=== PATIENT | male | born 1960 | race Caucasian/White ===

== ENCOUNTER 2019-12-13 08:35 | Outpatient (CLI) | payer OTHER, SELFPAY ==
--- NOTE | ~2019-12-13 | CT_ITS ---
EXAMINATION: CT chest w con DATE: 12/13/2019 09:36 INDICATION: Non-small cell lung cancer TECHNIQUE: Transaxial computed tomographic images of the chest were obtained after the administration of 75 cc of Omnipaque 350 intravenous contrast. The dose-length product (DLP) was 256.91 mGy-cm. Ite rative reconstruction was used. COMPARISON: 07/26/2019, 08/23/2019 FINDINGS: The previously described left upper lobe nodule has decreased in size now measuring approxi mately 1.8 x 1.0 cm, previously 2.8 x 2.5 cm. Left hilar and mediastinal lymphadenopathy has also dec reased. For instance a 3.5 x 2.7 cm prevascular gui mass previously measured 6.5 x 3.2 cm. The hear t size is normal There is mild emphysema. There is no pleural effusion or pneumothorax. A right inter nal jugular Port-A-Cath ends with its tip in the proximal right atrium. There is mild thoracic spondy losis. The liver is diffusely low in attenuation when compared with the spleen, consistent with hepat ic steatosis. IMPRESSION: 1. Interval response to therapy as evidenced by decrease in size of the left upper lobe nodule and me diastinal lymphadenopathy. Reviewed, dictated and finalized at location A. IMPRESSION: 1. Interval response to therapy as evidenced by decrease in size of the left up per lobe nodule and mediastinal lymphadenopathy.
== END 2019-12-13 08:36 | disposition home or self-care (01) ==
LOC: ANHIMG 08:39
PROVIDERS: Visit Provider Internal Medicine Hematology & Oncology
DX: C34.92 Malignant neoplasm of unspecified part of left bronchus or lung (principal)
CPT/HCPCS: 71260; Q9967

== ENCOUNTER 2020-03-05 10:07 | Outpatient (CLI) | payer OTHER, SELFPAY ==
--- NOTE | ~2020-03-05 | CT_ITS ---
EXAMINATION: CT chest w con DATE: 03/05/2020 10:48 INDICATION: Non-small cell lung cancer the left lung TECHNIQUE: Transaxial computed tomographic images of the chest were obtained after the administration of 75 cc of Omnipaque 350 intravenous contrast. The dose-length product (DLP) was 234.65 mGy-cm. Ite rative reconstruction was used. COMPARISON: 12/13/2019 FINDINGS: Bandlike and patchy opacities have developed in the left upper lobe which obscure the previ ously described left upper lobe nodule. The nodule appears to measure 1.2 cm in greatest dimension. B ronchiectasis has developed in the left upper lobe and superior segment of the left lower lobe as wel l. There is mild emphysema. The heart size is normal. There is a stable prevascular gui mass measur ing 3.5 x 2.6 cm. There is mild dependent atelectasis. No pleural effusion or pneumothorax is identif ied. The liver is diffusely low in attenuation when compared with the spleen, consistent with hepatic steatosis. A right internal jugular Port-A-Cath ends with its tip in the proximal right atrium. IMPRESSION: 1. Bronchiectasis with bandlike and patchy opacities developed in the left upper lobe, likely due to treatment change. 2. Apparent slight decrease in size of the previously described left upper lobe nodule which is obscu red by new opacities. 3. Stable prevascular gui mass. Reviewed, dictated and finalized at location A. IMPRESSION: 1. Bronchiectasis with bandlike and patchy opacities developed in the left uppe r lobe, likely due to treatment change. 2. Apparent slight decrease in size of the previously described left upper lobe nodule which is obscured by new opacities. 3. Stable prevascular gui mass.
== END 2020-03-05 10:08 | disposition home or self-care (01) ==
LOC: ANHIMG 10:11
PROVIDERS: PCP Nurse Practitioner Family; Visit Provider Internal Medicine Hematology & Oncology
DX: C34.92 Malignant neoplasm of unspecified part of left bronchus or lung (principal); J47.9 Bronchiectasis, uncomplicated; R91.1 Solitary pulmonary nodule
CPT/HCPCS: 71260; Q9967

== ENCOUNTER 2020-05-28 09:10 | Outpatient (CLI) | payer OTHER, SELFPAY ==
--- NOTE | ~2020-05-28 | CT_ITS ---
EXAMINATION: CT chest w con DATE: 05/28/2020 09:53 INDICATION: NSCLC LEFT TECHNIQUE: Computed tomography (CT) of the chest was performed with 75 mL Omnipaque-350 intravenous c ontrast. Additional 3D reconstructions utilizing coronal maximum intensity projection (MIP) were perf ormed. Automated exposure control and iterative reconstruction technique were employed. The dose-hua th product was 276.60 mGy-cm. COMPARISON: 03/05/2020 FINDINGS: Right internal jugular central venous port catheter with distal tip in the high right atrium. There a re subtle emphysema in the bilateral upper lungs. No significant interval change in a band like conso lidation with associated bronchiectasis in the left upper lobe and superior segment of the left lower lobe likely related to radiation fibrosis for treatment of a prior left upper lobe nodule. What is l ikely the treated nodule in the left upper lobe has decreased from 14 x 11 mm currently measuring 13 x 9 mm although definitive identification of the nodule is difficult given the development of fibrosi s and architectural distortion in the interval since the identification of the mass on prior PET/CT d ated 08/23/2019. Minimal subpleural atelectasis in the dependent aspect of the bilateral upper and lo wer lobes. No new pulmonary nodules or pulmonary infiltrates, pleural effusion or pneumothorax. Heart size is normal. No pericardial effusion. Thoracic aorta is normal in caliber with no dissection. No significant interval change in a 3.0 x 2.5 cm likely metastatic lymph prevascular lymph node in the a nterior mediastinum previously measuring 3.2 x 2.5 cm. Also unchanged are a few mildly prominent but still normal-sized paratracheal and bilateral hilar lymph nodes. No new or enlarging lymph nodes iden tified. Diffuse hepatic steatosis with focal sparing along the gallbladder fossa. Gallbladder, spleen and visualized portions of the pancreas, adrenal glands and upper poles of the kidneys are unremarka ble. Mild thoracic spondylosis. IMPRESSION: 1. No significant interval change in a bandlike region of likely radiation fibrosis and associated br onchiectasis in the left upper lobe and superior segment of the left lower lobe. 2. Slight decrease in size of a now 13 x 9 mm left upper lobe nodule likely representing response to treatment of reported non-small cell carcinoma. 3. No significant interval change in a likely treated metastatic 3.0 x 2.5 cm prevascular lymph node. 4. Mild emphysema. 5. Diffuse hepatic steatosis. Reviewed, dictated and finalized at location A. IMPRESSION: 1. No significant interval change in a bandlike region of likely radiation fibr osis and associated bronchiectasis in the left upper lobe and superior segment of the left lower lobe. 2. Slight decrease in size of a now 13 x 9 mm left upper lobe nodule likely rep resenting response to treatment of reported non-small cell carcinoma. 3. No significant interval change in a likely treated metastatic 3.0 x 2.5 cm p revascular lymph node. 4. Mild emphysema. 5. Diffuse hepatic steatosis.
== END 2020-05-28 09:11 | disposition home or self-care (01) ==
PROVIDERS: PCP Nurse Practitioner Family; Visit Provider Internal Medicine Hematology & Oncology
DX: C34.92 Malignant neoplasm of unspecified part of left bronchus or lung (principal); R91.1 Solitary pulmonary nodule; J43.9 Emphysema, unspecified; K76.0 Fatty (change of) liver, not elsewhere classified
CPT/HCPCS: 71260; Q9967

== ENCOUNTER 2020-08-18 07:28 | Outpatient (CLI) | payer OTHER, SELFPAY ==
--- NOTE | ~2020-08-18 | CT_ITS ---
EXAMINATION: CT chest w con DATE: 08/18/2020 08:04 INDICATION: Non-small cell lung cancer restaging TECHNIQUE: Computed tomography (CT) of the chest was performed without intravenous contrast. Automate d exposure control and iterative reconstruction technique were employed. Exam dose: 282.22 mGy-cm to rae exam DLP. COMPARISON: None FINDINGS: Right Port-A-Cath catheter tip in upper right atrium. No thoracic aortic aneurysm or dissection. There is chronic scarring, likely radiation fibrosis, in the left upper lobe and superior segment of the left lower lobe,stable since 05/28/2020. Mild emphysematous changes are noted. No interval pulmonary mass is evident. Stable approximately 2.5 centimeter prevascular lymph node. No enlarged hilar or mediastinal lymph no agnieszka are noted otherwise. No thoracic aortic aneurysm or dissection. No evidence of pulmonary embolism. No pericardial or pleural effusion or pneumothorax. Diffuse hepatic steatosis. Normal adrenal glands. 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 Reviewed, dictated and finalized at location A. 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
== END 2020-08-18 07:29 | disposition home or self-care (01) ==
PROVIDERS: PCP Nurse Practitioner Family; Visit Provider Internal Medicine Hematology & Oncology
DX: C34.92 Malignant neoplasm of unspecified part of left bronchus or lung (principal)
CPT/HCPCS: 71260; Q9967

== ENCOUNTER 2020-10-22 08:19 | Outpatient (CLI) | payer OTHER, SELFPAY ==
--- NOTE | ~2020-10-22 | NM_ITS ---
NM bone scan whole body INDICATION: Non-small cell lung cancer of the left lung TECHNIQUE: The patient was injected with 24.5 mCi Tc 99m HDP. Gamma camera images of the region of i nterest and whole body were obtained. COMPARISON: CT dated 08/18/2020 FINDINGS: There is mild focal area of radiotracer uptake in the left anterior ribs. Which is indeterm inate. There is a focal area of increased radiotracer uptake overlying right upper rib on the posteri or image, likely representing the port for central venous catheter. There is mild symmetric uptake in the shoulders, likely degenerative. Central venous catheter is identified with radiotracer. Mild upt buddy in the elbows, wrists and hands, likely degenerative. IMPRESSION: 1: Focal asymmetric uptake left upper anterior rib on the anterior view, possibly costochondral junc tion. This may be posttraumatic or less likely metastatic disease. Reviewed, dictated and finalized at location B. ER MACHINE OPERATOR IMPRESSION: 1: Focal asymmetric uptake left upper anterior rib on the anterior view, possi harper costochondral junction. This may be posttraumatic or less likely metastatic disease.
== END 2020-10-22 08:20 | disposition home or self-care (01) ==
PROVIDERS: PCP Nurse Practitioner Family; Visit Provider Internal Medicine Hematology & Oncology
DX: C34.92 Malignant neoplasm of unspecified part of left bronchus or lung (principal); M89.9 Disorder of bone, unspecified
CPT/HCPCS: 78306; A9561

== ENCOUNTER 2020-11-06 10:56 | Outpatient (CLI) | payer OTHER, SELFPAY ==
--- NOTE | ~2020-11-06 | US_ITS ---
EXAMINATION: US abdomen complete EXAM DATE: 11/06/2020 12:02 INDICATION: R10.11 - Right upper quadrant pain. History of lung cancer, treatment. TECHNIQUE: Multiple grayscale and Doppler images of the complete abdomen were obtained (by a technolo gist who performed the scan) and subsequently reviewed. There is no prior study for comparison. FINDINGS: The abdominal aorta is normal in caliber. Visualized portion IVC is patent. The pancreatic head a nd body are normal in appearance. The pancreatic tail is not visualized. There is echogenic liver parenchyma, hepatic steatosis. There are no focal liver lesions identified. There is no evidence of intrahepatic biliary duct dilation. Portal venous flow was seen in the he patopedal, normal direction and has normal Doppler waveform. Common bile duct measures 6 mm, which is normal. The gallbladder wall is normal in thickness, with ex pected amount of distention. No sonographic evidence of pericholecystic fluid. There is no cholelit hiases. Technologist performing exam reports patient did not demonstrate sonographic Young's sign. Please note that this sign is less reliable in patients who have received pain medication. Right kidney: There is normal contour and echogenicity. It measures 10.7 x 5.6 x 5.7 centimeters. There are no focal renal lesions identified. There is no hydronephrosis. Left kidney: There is normal contour and echogenicity. It measures 11.7 x 5.2 x 5.5 centimeters. T here are no focal renal lesions identified. There is no hydronephrosis. The spleen was searched for, but not identified. IMPRESSION: 1. Hepatic steatosis. 2. Unremarkable gallbladder. 3. No hydronephrosis. Reviewed, dictated and finalized at location B. CH SERVICE ASSOCIATE
[2020-11-06 11:06] LABS: Add Urine Microscopic? NO; Appearance Urine Clear (Clear); Bilirubin Urine Negative (Negative); Blood Urine Negative (Negative); Color Urine Yellow (Yellow); Glucose Urine UA Negative (Negative); Ketones Urine Negative (Negative); Leukocyte Esterase Ur Negative LEU/UL (Negative); Nitrate Urine Negative (Negative); Protein Urine Negative (Negative); Specific Grav Ur 1.025 (1.010-1.020); Urobilinogen Urine 0.2 mg/dL (0.2-1.0)
== END 2020-11-06 10:57 | disposition home or self-care (01) ==
LOC: CHSIMG 10:58
PROVIDERS: PCP Nurse Practitioner Family; Visit Provider Nurse Practitioner Family
DX: R10.11 Right upper quadrant pain (principal)
CPT/HCPCS: 76700; 81003

== ENCOUNTER 2020-11-13 08:03 | Outpatient (CLI) | payer OTHER, SELFPAY ==
--- NOTE | ~2020-11-13 | CT_ITS ---
EXAMINATION: CT diagnostic chest w con EXAM DATE: 11/13/2020 08:51 INDICATION: Non-small cell lung cancer. TECHNIQUE: Spiral CT of the chest following intravenous injection of 75 mL Omnipaque 350. Axial, cor onal and sagittal images were reviewed. Coronal maximum intensity pixel images of chest reviewed. Loreta charles dose-length product (DLP) for this examination was 285.79 mGy-cm. The exposure was tailored accor ding to patient size (auto mA exposure control), and iterative reconstruction (ASIR) was used as jad tional dose reduction technique. Comparison is made to prior examination from 08/18/2020. FINDINGS: Interval development of multiple scattered pulmonary nodules throughout the lungs, metasta tic disease measuring up to 8 mm in size. Again there is ill-defined left upper lobe, superior segmen t left lower lobe airspace disease with interlobular septal thickening, volume loss, could be radiati on fibrosis. There are no pleural or pericardial effusions. There is mild bronchiectasis. Tracheobro nchial tree is patent. Pathologically enlarged prevascular lymph node measuring 2.9 x 2.1 cm appear s unchanged. No central pulmonary emboli. There is no pneumothorax. Heart normal in size. No guilherme dence of coronary arterial calcification. There is hepatic steatosis. There is thoracic spondylosis without osteoblastic or osteolytic lesions identified. Right-sided portacatheter. IMPRESSION: 1. Interval development of multiple subcentimeter pulmonary nodules, metastatic disease. 2. Stable prevascular lymphadenopathy and left suprahilar opacities probably radiation fibrosis. 3. Hepatic steatosis. Reviewed, dictated and finalized at location A. SPECTROMETRY MANAGER IMPRESSION: 1. Interval development of multiple subcentimeter pulmonary nodules, metastati c disease. 2. Stable prevascular lymphadenopathy and left suprahilar opacities probably r adiation fibrosis. 3. Hepatic steatosis.
== END 2020-11-13 08:04 | disposition home or self-care (01) ==
LOC: ANHIMG 08:06
PROVIDERS: PCP Nurse Practitioner Family; Visit Provider Internal Medicine Hematology & Oncology
DX: C34.92 Malignant neoplasm of unspecified part of left bronchus or lung (principal); R91.8 Other nonspecific abnormal finding of lung field; R59.0 Localized enlarged lymph nodes; K76.0 Fatty (change of) liver, not elsewhere classified
CPT/HCPCS: 71260; Q9967

== ENCOUNTER 2020-11-24 10:35 | Outpatient (CLI) | payer OTHER, SELFPAY ==
--- NOTE | ~2020-11-24 | PE_ITS ---
EXAMINATION: PET skull to mid thigh DATE: 11/24/2020 12:36 INDICATION: Non-small cell cancer of the left lung. TECHNIQUE: Blood glucose level was 104 mg/dL. 10.273 mCi of 18-fluorodeoxyglucose (18-FDG) was admini stered i.v. Low dose computed tomography (CT) images were acquired from the base of the brain to the proximal thighs for attenuation correction and anatomic localization. Positron emission tomography (P ET) images were acquired in the same distribution beginning 70 minutes after injection. Images includ ing fused PET/CT images were reconstructed in axial, coronal, and sagittal planes. Automated exposure control technique was employed. The dose-length product was 1045.40mGy-cm. COMPARISON: 08/23/2019 FINDINGS: Head/neck: There is symmetric increased activity in the oral cavity, palatine and lingual tonsils, parotid gland s, submandibular glands, laryngeal muscles and ocular muscles without CT correlate, likely physiolog ic. No pathologically enlarged cervical lymphadenopathy or suspicious foci of increased FDG uptake in the visualized head or neck. Chest: There is a small focus of increased FDG uptake with maximal SUV of 5.7 in the left supraclavicular re gion in the region of the an approximately 12 x 5 mm lymph node suspicious for metastatic disease. Ap ical predominant emphysema. New horizontal band of consolidation suggesting across the left upper lob e at the level of a prior FDG avid left upper lobe mass consistent with interval treatment and second madelyn radiation fibrosis. On the posterolateral margin of the band of fibrosis/scarring is an approxima tely 2 cm focus of increased FDG uptake with maximal SUV of 7.0 suspicious for malignancy. The locati on and the left upper lobe appears more posterior than the previous noted mass and favor metastatic d isease. There are several new scattered bilateral subcentimeter pulmonary nodules, with mildly increa sed FDG uptake. This includes lesion at the posterior right apex with maximal SUV of 3.7. The largest is a 1 cm left lower lobe nodule along the diaphragm with maximal SUV of 2.8. The degree of FDG upta ke however could be underestimated in the bilateral lower lung zones due to volume averaging resultin g from respiratory motion which is evident on the CT images. Decrease in size of a now 2.9 x 2.0 cm p revascular lymph node which is without evident associated FDG uptake which previously measured 6.0 x 3.2 cm with maximal SUV of 11.4 consistent with response to treatment of mediastinal metastatic lymph adenopathy. No new or enlarging FDG avid thoracic lymphadenopathy. Mild cardiomegaly. Right internal jugular central venous port catheter with distal tip at the high right atrium. No pericardial or pleu ral effusion. Abdomen/pelvis/proximal thighs: There is a new masslike enlargement of the posterior aspect of the interpolar region of the right kid sonido with prominent peripheral FDG uptake with maximal SUV of 14.7. The margins of the region are diff icult to discern from the surrounding kidney but based on the region of increased FDG uptake with est imate the lesion at approximately 4-5 cm in diameter. There is mild hydronephrosis at the lower pole of the right kidney with increased likely excreted FDG activity in the mildly dilated calyces at the lower pole. There is a 3 mm stone at the mid right kidney and is unclear whether the hydronephrosis s econdary to the stone or the mass. Diffuse hepatic steatosis with focal sparing along the gallbladder fossa. Normal degree and heterogenous pattern of increased uptake throughout the liver without radio logic correlate or dominant FDG avid lesion. The gallbladder, pancreas, spleen and bilateral adrenal glands are normal. Moderate sigmoid predominant diverticulosis. There is persistent region of increas ed FDG uptake associated with mild wall thickening along a short segment of proximal sigmoid colon wi thout significa
[2020-11-24 11:00] LABS: Glucose Point of Care 104 (65-105)
== END 2020-11-24 10:36 | disposition home or self-care (01) ==
PROVIDERS: PCP Nurse Practitioner Family; Visit Provider Nurse Practitioner Family
DX: C34.12 Malignant neoplasm of upper lobe, left bronchus or lung (principal); Z51.81 Encounter for therapeutic drug level monitoring; Z79.899 Other long term (current) drug therapy; K76.0 Fatty (change of) liver, not elsewhere classified
CPT/HCPCS: 78815; 82948; A9552

== ENCOUNTER 2020-12-04 14:55 | Outpatient (CLI) | payer OTHER, SELFPAY ==
--- NOTE | ~2020-12-04 | CT_ITS ---
EXAMINATION: CT abdomen pelvis w con EXAM DATE: 12/04/2020 15:39 INDICATION: Right renal mass. Lung cancer. TECHNIQUE: Spiral CT of the abdomen and pelvis was performed following intravenous injection of 100 m L Omnipaque 350. Axial, coronal and sagittal images were reviewed. The dose-length product (DLP) fo r this examination was 827.37 mGy-cm. The exposure was tailored according to patient size (auto mA e xposure control), and iterative reconstruction (ASIR) was used as additional dose reduction technique . Comparison is made to prior examination from PET CT 11/24/2020. FINDINGS: There is hepatic steatosis without suspicious focal lesion identified. Spleen, adrenal glan ds, pancreas are unremarkable. Gallbladder is unremarkable. No biliary obstruction. Ill-defined heterogeneous region in the midpole posterior cortex of the right kidney measuring about 4 cm. Most likely malignancy, would consider renal cell cancer and also other histologies such as tra nsitional cell cancer given the ill-defined margins and possible superior calyceal invasion. No evide nce of renal vein involvement, but there is pathologically enlarged right-sided retrocaval lymph node which has heterogeneous enhancement and measures about 1.3 x 2.0 cm. There is also metastatic lymph node on the left side of the retroperitoneum measuring 1.4 x 1.0 cm. There is ill-defined fat strandi ng surrounding both these lymph nodes. Small right calyceal calcification. The prostate is unremarka ble. The bladder is unremarkable. There is mild scattered arteriosclerotic disease. There is focal region of proximal sigmoid colonic wall thickening measuring about 5 cm in length, onl y minimal adjacent inflammation. Appearance is suspicious for colon cancer, less likely diverticuliti s. Rather extensive sigmoid colonic diverticulosis. The appendix is normal. The stomach and small jasson wel are unremarkable. There is expected amount of colonic stool. No free intraperitoneal gas. Th e heart is normal in size. There are no pericardial or pleural effusions. Scattered randomly distri buted basilar pulmonary nodules consistent with metastatic disease measuring up to about 1 cm in size . There are no osteoblastic or osteolytic lesions identified. IMPRESSION: 1. Right renal 4 cm mass, with suspected superior calyceal invasion. Could be renal cell cancer, tra nsitional cell cancer or other histology. 2. Metastatic bilateral retroperitoneal lymphadenopathy at the level of the renal arteries and veins . 3. Sigmoid colonic wall thickening suspicious for adenocarcinoma. Can't exclude diverticulitis. 4. Numerous basilar pulmonary metastases. 5. Hepatic steatosis. Reviewed, dictated and finalized at location A. IMPRESSION: 1. Right renal 4 cm mass, with suspected superior calyceal invasion. Could be renal cell cancer, transitional cell cancer or other histology. 2. Metastatic bilateral retroperitoneal lymphadenopathy at the level of the re nal arteries and veins. 3. Sigmoid colonic wall thickening suspicious for adenocarcinoma. Can't exclud e diverticulitis. 4. Numerous basilar pulmonary metastases. 5. Hepatic steatosis.
--- NOTE | ~2020-12-04 | XR_ITS ---
XR abdomen/kub 1V DATE: 12/04/2020 15:15 INDICATION: Right renal mass TECHNIQUE: AP projection, 2 views COMPARISON: 12/04/[address] abdomen pelvis 11/06/2020 complete abdominal ultrasound FINDINGS: The psoas shadows are intact. No visceromegaly is evident. There is a prominent amount of f ecal material within the rectum and colon but no bowel obstruction. Included skeletal structures are unremarkable. IMPRESSION: Prominent amount of fecal material in the rectum and colon; no bowel obstruction Reviewed, dictated and finalized at [facility]. Reviewed, dictated and finalized at location B. IMPRESSION: Prominent amount of fecal material in the rectum and colon; no adi l obstruction
== END 2020-12-04 14:56 | disposition home or self-care (01) ==
PROVIDERS: PCP Nurse Practitioner Family; Visit Provider Nurse Practitioner Adult Health
DX: N28.89 Other specified disorders of kidney and ureter (principal); R59.9 Enlarged lymph nodes, unspecified; R91.8 Other nonspecific abnormal finding of lung field; K76.0 Fatty (change of) liver, not elsewhere classified; R10.9 Unspecified abdominal pain; Z87.442 Personal history of urinary calculi
CPT/HCPCS: 74018; 74177; Q9967

== ENCOUNTER 2020-12-06 19:45 | Observation (INO) | payer OTHER, SELFPAY ==
--- NOTE | ~2020-12-06 | CT_ITS ---
EXAMINATION: CT abdomen pelvis wo con EXAM DATE: 12/06/2020 20:48 INDICATION: Right flank pain. TECHNIQUE: Spiral CT of the abdomen and pelvis was performed without contrast. Axial, coronal and sag ittal images were reviewed. The dose-length product (DLP) for this examination was 1173.22 mGy-cm. The exposure was tailored according to patient size (auto mA exposure control), and iterative reconst ruction (ASIR) was used as additional dose reduction technique. Comparison is made to prior examinati on from 12/04/2020. FINDINGS: There is no significant interval change compared to CT 2 days earlier. There is hepatic steatosis without suspicious focal lesion identified. Spleen, adrenal glands, pancreas are unremarkab le. Gallbladder is unremarkable. No biliary obstruction. There is 2 x 4 mm nonobstructing left calyceal stone. No hydronephrosis or ureteral stones. Ill-defin ed heterogeneous region in the midpole posterior cortex of the right kidney measuring about 4 cm. Mos t likely malignancy, would consider renal cell cancer and also other histologies such as transitional cell cancer given the ill-defined margins. No evidence of renal vein involvement, but there is patho logically enlarged right-sided retrocaval lymph node measuring 1.3 x 2.0 cm. There is also metastatic lymph node on the left side of the retroperitoneum measuring 1.4 x 1.0 cm. There is ill-defined fat stranding surrounding both these lymph nodes. The prostate is unremarkable. The bladder is unremar kable. There is mild scattered arteriosclerotic disease. There is focal region of proximal sigmoid colonic wall thickening measuring about 5 cm in length, onl y minimal adjacent inflammation. Appearance is suspicious for colon cancer, less likely diverticuliti s. Rather extensive sigmoid colonic diverticulosis. The stomach and small bowel are unremarkable. T here is expected amount of colonic stool. No free intraperitoneal gas. The heart is normal in siz e. There are no pericardial or pleural effusions. Scattered randomly distributed basilar pulmonary nodules consistent with metastatic disease measuring up to about 1 cm in size. There are no osteobla stic or osteolytic lesions identified. IMPRESSION: 1. Right renal 4 cm mass, with suspected superior calyceal invasion. Could be renal cell cancer, tra nsitional cell cancer or other histology. 2. Metastatic bilateral retroperitoneal lymphadenopathy at the level of the r0enal arteries and vein s. 3. Sigmoid colonic wall thickening suspicious for adenocarcinoma. Can't exclude diverticulitis. 4. Numerous basilar pulmonary metastases. 5. Small nonobstructing right superior calyceal stone. 6. Hepatic steatosis. Reviewed, dictated and finalized at location A. IMPRESSION: 1. Right renal 4 cm mass, with suspected superior calyceal invasion. Could be renal cell cancer, transitional cell cancer or other histology. 2. Metastatic bilateral retroperitoneal lymphadenopathy at the level of the r0 enal arteries and veins. 3. Sigmoid colonic wall thickening suspicious for adenocarcinoma. Can't exclud e diverticulitis. 4. Numerous basilar pulmonary metastases. 5. Small nonobstructing right superior calyceal stone. 6. Hepatic steatosis.
[2020-12-06 20:00] VITALS: BP 140/96; PULSE 99; RESP 20; TEMP 36.6; O2SAT 96
--- NOTE | 2020-12-06 20:13 | ECG_ITS ---
Measurements Intervals [place] Rate: 68 P: 51 OR: 138 QRS: -9 QRSD: 87 T: 58 QT: 385 QTc: 410 Interpretive Statements SINUS RHYTHM VOLTAGE CRITERIA FOR LVH BASELINE ARTIFACT- I, II, III, AVF, V3-V4 BORDERLINE ECG Electronically Signed On 12-07-2020 16:36:47 CDT by Red Reis D.O.
[2020-12-06] MEDS: ONDANSETRON INJ 4 MG/2 ML VIAL IV PUSH (20:40)
[2020-12-06] MEDS: SODIUM CHLORIDE 0.9% IV 1,000 ML 999 ML IV CONT (20:40)
[2020-12-06] MEDS: MORPHINE SULFATE (*CRX) 4 MG/ML INJ IV PUSH (20:40)
[2020-12-06 20:41] LABS: Basophils Absolute Auto 0.03 K/mm3 (0.00-0.10); Basophils Percent Auto 0.4 % (0.0-1.0); Eosinophils Absolute Auto 0.11 K/mm3 (0.02-0.50); Eosinophils Percent Auto 1.5 % (1.0-6.0); Hematocrit 39.2 % (40.0-54.0); Hemoglobin 13.1 g/dL (14.0-18.0); Immature Granulocyte Absolute 0.04 K/mm3 (0.00-0.00); Immature Granulocyte Percent A 0.6 % (0.0-0.0); Lymphocytes Absolute Auto 1.41 K/mm3 (1.10-4.50); Lymphocytes Percent Auto 19.7 % (18.0-42.0); Mean Corpuscular HGB Conc 33.4 g/dL (32.0-36.0); Mean Corpuscular Volume 95.6 fL (78.0-102.0); Mean Platelet Volume 8.7 fl (8.7-11.0); Monocytes Absolute Auto 0.95 K/mm3 (0.10-0.90); Monocytes Percent Auto 13.3 % (2.0-11.0); Neutrophils Absolute Auto 4.6 K/mm3 (1.7-7.2); Neutrophils Percent Auto 64.5 % (50.0-70.0); Platelet Count Result 291 K/mm3 (150-420); Red Cell Distribution Width 12.2 % (11.6-14.4); White Blood Count 7.2 K/mm3 (4.8-10.8)
[2020-12-06 20:55] LABS: Add Urine Microscopic? NO; Appearance Urine Clear (Clear); Bilirubin Urine Negative (Negative); Blood Urine Negative (Negative); Color Urine Yellow (Yellow); Glucose Urine UA Negative (Negative); Ketones Urine Negative (Negative); Leukocyte Esterase Ur Negative LEU/UL (Negative); Nitrate Urine Negative (Negative); Protein Urine Negative (Negative); pH Urine 7.5 (5.0-8.0)
[2020-12-06 20:56] LABS: Alanine Aminotransferase 35 U/L (16-63); Albumin Level 3.9 g/dL (3.4-5.0); Alkaline Phosphatase 88 U/L (46-116); Anion Gap 10 mmol/L (8-16); Aspartate Amino Transferase 14 U/L (15-37); Bilirubin,Total 0.5 mg/dL (0.00-1.00); Blood Urea Nitrogen 12 mg/dL (7-18); Calcium 9.7 mg/dL (8.5-10.1); Carbon Dioxide 29 mmol/L (21-32); Chloride 97 mmol/L (98-108); Estimated CRCL calculation 59 ml/min; Estimated Glomerular Filt Rate > 60; Glucose 128 mg/dL (70-99); Lipase 44 U/L (73-393); Osmolality Calculated 283 mOsm/kg (285-295); Potassium 3.8 mmol/L (3.5-5.1); Sodium 136 mmol/L (136-145); Total Protein 7.5 g/dL (6.4-8.2); Troponin I 4.6 ng/L (0.00-60.4)
[2020-12-06 20:59] LABS: Lactic Acid Reflex 1.1 mmol/L (0.4-2.0)
--- NOTE | 2020-12-06 21:14 | ED.ABDPAIN ---
HPI - Abdominal Pain General Chief Complaint: Abdominal Pain Stated Complaint: Abdominal pain Source: patient and family Mode of arrival: ambulatory Limitations: no limitations History of Present Illness HPI narrative: this is a 60 year gentleman that presents with severe abdominal pain, does have abdominal pain off and on for the last month or so but has intensified over the last 24 hours. Currently there is no diarrhea or constipation he is nauseated with no episodes of vomiting has an aversion to food makes him nauseated, currently there is no fever chills no shortness of breath no chest pain does have some right flank discomfort with no dysuria no hematuria. The patient rates his pain 10/10 diffuse with some right flank discomfort as well. The patient has a history of lung cancer stage III non-small cell lung cancer has received radiation and has last chemo early in November. The patient is also followed by oncology and has a 4cm renal mass with superior calyceal invasion that is being worked up by his attendance clerk oncologist. Patient has pain medication oxycodone that he has been using p.o. with some no significant relief of his pain. MD elicited complaint: abdominal pain Pertinent past history: other ( Kidney mass/ lung cancer) Onset (ago): month(s) Pain Consistency: constant Location: diffuse Severity: severe Pain scale (0-10): 10 Quality: fullness and sharp Radiation: none Migration to: periumbilical and R flank Exacerbating factors: eating Relieving factors: nothing Associated symptoms: nausea Related Data Home Medications Medication Instructions Recorded Confirmed cyanocobalamin (vitamin B-12) 2,500 mcg PO DAILY 07/31/19 12/06/20 pyridoxine (vitamin B6) 100 mg PO DAILY 07/31/19 12/06/20 lidocaine 1 applic TOPICAL PRN PRN 09/03/19 12/06/20 alprazolam 0.25 mg PO HS PRN 04/23/20 12/06/20 oxycodone-acetaminophen 1 tablet PO Q4-6H PRN 12/06/20 12/06/20 Allergies Allergy/AdvReac Type Severity Reaction Status Date / Time amoxicillin [From Augmentin] Allergy Rash Verified 11/06/20 09:00 clavulanic acid Allergy Rash Verified 11/06/20 09:00 [From Augmentin] Review of Systems Review of Systems: All systems reviewed & are unremarkable except as noted in HPI and below PMFSH Past Medical History Medical History GERD (gastroesophageal reflux disease) Metastatic non-small cell lung cancer Neck pain Surgical History Surgical History History of vasectomy Family History Family History Mother Family history of type 2 diabetes mellitus Family history of renal failure Father Family history of coronary artery disease Family history of type 2 diabetes mellitus Social History Social History Smoking packs per day: 0.5 Smoking cigarettes per day: 10.0 Years smoked: 45 Smoking pack-years: 22.50 Smoking status: Former smoker Tobacco type: cigarettes Smoking end date: 08/06/19 Additional occupation/education comments: [employer] Gender identity (if verbalized by the patient): Male Spiritual care concerns: No Exam Const: General: no acute distress, alert and ill appearing Orientation/consciousness: patient oriented x3 HENMT: Head: normal to inspection Eyes: Conjunctivae: conjunctivae normal Pupils: Equal, round and reactive pupils present Neck: Neck: normal visual inspection, no lymphadenopathy and no meningeal signs Chest: Chest palpation & inspection: normal inspection of the chest Resp: Effort & Inspection: normal respiratory effort Auscultation: clear to auscultation bilaterally Cardio: Rate: regular rate Rhythm: regular rhythm GI: GI Palp: Yes Tenderness to palpation present (GI) Percussion: Yes normal to percussion :
[2020-12-06] MEDS: HYDROmorphone HCL INJ (*CRX) 2 MG/ML VIAL IV PUSH (21:17)
[2020-12-06 21:31] VITALS: BP 132/76; PULSE 68; RESP 20; TEMP 36.6; O2SAT 93
[2020-12-06 21:50] VITALS: BP 144/76; PULSE 68; RESP 18; TEMP 36.4; O2SAT 96; BMI 28.3
[2020-12-06 21:59] VITALS: PULSE 68; O2SAT 96
--- NOTE | 2020-12-06 22:06 | PC.NURSE ---
Here for observation and to room 204, cancer doctor out of town and pain in abdomen got worse, oxycodone at home not helping, states last med in ER did help and more comfortable now. oriented to room and call system, visitor policy, mask policy
[2020-12-06] MEDS: SODIUM CHLORIDE 0.9% IV 1,000 ML 100 ML IV CONT (22:17)
[2020-12-07] VITALS: BP 147/70; PULSE 60; RESP 20; TEMP 36.2; O2SAT 100
[2020-12-07] MEDS: HYDROmorphone HCL INJ (*CRX) 2 MG/ML VIAL IV PUSH ×4 (02:24→23:23)
[2020-12-07 06:25] LABS: Basophils Absolute Auto 0.03 K/mm3 (0.00-0.10); Basophils Percent Auto 0.5 % (0.0-1.0); Eosinophils Absolute Auto 0.15 K/mm3 (0.02-0.50); Eosinophils Percent Auto 2.3 % (1.0-6.0); Hematocrit 37.9 % (40.0-54.0); Hemoglobin 12.3 g/dL (14.0-18.0); Immature Granulocyte Absolute 0.02 K/mm3 (0.00-0.00); Immature Granulocyte Percent A 0.3 % (0.0-0.0); Lymphocytes Absolute Auto 1.61 K/mm3 (1.10-4.50); Lymphocytes Percent Auto 24.9 % (18.0-42.0); Mean Corpuscular HGB Conc 32.5 g/dL (32.0-36.0); Mean Corpuscular Hemoglobin 31.6 pg (27.0-31.0); Mean Corpuscular Volume 97.4 fL (78.0-102.0); Mean Platelet Volume 8.7 fl (8.7-11.0); Monocytes Absolute Auto 0.84 K/mm3 (0.10-0.90); Neutrophils Absolute Auto 3.8 K/mm3 (1.7-7.2); Platelet Count Result 275 K/mm3 (150-420); Red Blood Count 3.89 M/mm3 (4.70-6.10); Red Cell Distribution Width 12.5 % (11.6-14.4); White Blood Count 6.5 K/mm3 (4.8-10.8)
[2020-12-07 06:35] LABS: Alanine Aminotransferase 32 U/L (16-63); Albumin Level 3.3 g/dL (3.4-5.0); Alkaline Phosphatase 78 U/L (46-116); Anion Gap 6 mmol/L (8-16); Aspartate Amino Transferase 15 U/L (15-37); Bilirubin,Total 0.5 mg/dL (0.00-1.00); Blood Urea Nitrogen 12 mg/dL (7-18); Calcium 8.9 mg/dL (8.5-10.1); Carbon Dioxide 31 mmol/L (21-32); Chloride 102 mmol/L (98-108); Estimated CRCL calculation 58 ml/min; Estimated Glomerular Filt Rate > 60; Glucose 94 mg/dL (70-99); Osmolality Calculated 287 mOsm/kg (285-295); Potassium 3.9 mmol/L (3.5-5.1); Sodium 139 mmol/L (136-145); Total Protein 6.7 g/dL (6.4-8.2)
[2020-12-07 07:40] VITALS: BP 133/65; PULSE 58; RESP 18; TEMP 35.9; O2SAT 97
--- NOTE | 2020-12-07 08:26 | PM.IMHP ---
H&P: HPI History of Present Illness Date/Time: 12/07/20 08:26 this is a 60-year-old gentleman lung cancer in neck pain presented to our ED today with severe abdominal pain and nausea. Patient has a past medical history of GERD metastatic non-small cell lung cancer and neck pain. Patient has been has been having abdominal pain with nausea for approximately 1 month patient visited his primary care physician Brenna 11/11 for abdominal pain and nausea vomiting he also visited his oncologist on 11/17/2020 for right flank pain and nausea and vomiting and a weight loss of 8 pounds. Patient was found to have a nonobstructive kidney stone and a mass on his kidney during she was also found to have numerous pulmonary metastasis and sigmoid colonic wall thickening suspicious for adenocarcinoma. Patient will need to follow-up with his primary care physician he also had an appointment with the urologist concerning this renal mass will need to follow-up with them as well. Patient labs were unremarkable. He has been admitted for pain control and to control his nausea. Patient continues to have nausea today he also continues to have abdominal pain I will adjust his pain medication. He will need to follow-up with his primary care physician, oncologist and urologist Chief Complaint: Abdominal pain with nausea Review of Systems Review of Systems: Narrative: A 14 organ system Review of Systems was performed and pertinent positives included in the HPI, otherwise remaining ROS is negative. [facility] Past Medical History Medical History GERD (gastroesophageal reflux disease) Metastatic non-small cell lung cancer Neck pain Surgical History Surgical History History of vasectomy Family History Family History Mother Family history of type 2 diabetes mellitus Family history of renal failure Father Family history of coronary artery disease Family history of type 2 diabetes mellitus Social History Social History Smoking packs per day: 0.5 Smoking cigarettes per day: 10.0 Years smoked: 45 Smoking pack-years: 22.50 Smoking status: Former smoker Tobacco type: cigarettes Smoking end date: 08/06/19 Alcohol intake: never Substance use: never Additional occupation/education comments: [employer] Gender identity (if verbalized by the patient): Male Sexual Orientation (if Verbalized by the Patient): Straight or Heterosexual Spiritual care concerns: No Meds Home Medications and Allergies Home Medications Medication Instructions Recorded Confirmed Type cyanocobalamin (vitamin B-12) 2,500 mcg PO DAILY 07/31/19 12/06/20 History pyridoxine (vitamin B6) 100 mg PO DAILY 07/31/19 12/06/20 History albuterol sulfate 90 mcg/actuation 1 puff INHALATION Q4H PRN #8 gm 08/08/19 12/06/20 Rx aerosol inhaler lidocaine 1 applic TOPICAL PRN PRN 09/03/19 12/06/20 History alprazolam 0.25 mg PO HS PRN 04/23/20 12/06/20 History ondansetron HCl 8 mg tablet 8 mg PO Q8H PRN #20 tablet 11/06/20 12/06/20 Rx oxycodone-acetaminophen 1 tablet PO Q4-6H PRN 12/06/20 12/06/20 History Allergies Allergy/AdvReac Type Severity Reaction Status Date / Time amoxicillin [From Augmentin] Allergy Rash Verified 11/06/20 09:00 clavulanic acid Allergy Rash Verified 11/06/20 09:00 [From Augmentin] Vital Signs Vital Signs - 24 hr 12/06/20 20:00 12/06/20 21:31 12/06/20 21:50 Temperature 97.8 F 97.8 F 97.5 F L Pulse Rate 99 68 68 Respiratory Rate 20 20 18 Blood Pressure 140/96 H 132/76 144/76 H Pulse Oximetry 96 93 96 12/06/20 21:59 12/07/20 00:00 12/07/20 07:40 Temperature 97.2 F L 96.7 F L Pulse Rate 68 60 58 L Respiratory Rate 20 18 Blood Pressure 147/70 H 133/65 Pulse Oximetry 96 100 97 E
[2020-12-07] MEDS: SODIUM CHLORIDE 0.9% IV 1,000 ML 100 ML IV CONT ×2 (08:46→17:40)
[2020-12-07] MEDS: PANTOPRAZOLE SODIUM IV 40 MG VIAL IV PUSH (11:39)
[2020-12-07] MEDS: oxyCODONE HCL (*CRX) 10 MG TAB SR 12HR PO ×2 (11:39→20:20)
[2020-12-07 15:30] VITALS: BP 139/81; PULSE 63; RESP 18; TEMP 36.8; O2SAT 98
--- NOTE | 2020-12-07 15:35 | PC.NURSE ---
Dilaudid given over 3 minutes to prevent nausea and clamminess.
[2020-12-07 15:40] VITALS: BP 115/62; PULSE 60; RESP 18
[2020-12-07] MEDS: DOCUSATE SODIUM 100 MG CAPSULE PO (20:20)
--- NOTE | 2020-12-07 20:30 | PC.NURSE ---
Given ice cream. Ate 100%.
[2020-12-07 23:25] VITALS: BP 161/82; PULSE 68; RESP 20; TEMP 36.8; O2SAT 97
[2020-12-07] MEDS: ONDANSETRON INJ 4 MG/2 ML VIAL IV PUSH (23:25)
[2020-12-08] MEDS: SODIUM CHLORIDE 0.9% IV 1,000 ML 100 ML IV CONT (03:44)
[2020-12-08] MEDS: HYDROmorphone HCL INJ (*CRX) 2 MG/ML VIAL IV PUSH ×2 (03:47→08:29)
[2020-12-08 05:48] LABS: Hematocrit 38.3 % (40.0-54.0); Hemoglobin 12.5 g/dL (14.0-18.0); Mean Corpuscular HGB Conc 32.6 g/dL (32.0-36.0); Mean Corpuscular Hemoglobin 31.8 pg (27.0-31.0); Mean Corpuscular Volume 97.5 fL (78.0-102.0); Mean Platelet Volume 8.8 fl (8.7-11.0); Platelet Count Result 267 K/mm3 (150-420); Red Blood Count 3.93 M/mm3 (4.70-6.10); Red Cell Distribution Width 12.4 % (11.6-14.4); White Blood Count 6.3 K/mm3 (4.8-10.8)
[2020-12-08 06:07] LABS: Alanine Aminotransferase 31 U/L (16-63); Albumin Level 3.3 g/dL (3.4-5.0); Alkaline Phosphatase 80 U/L (46-116); Anion Gap 7 mmol/L (8-16); Aspartate Amino Transferase 11 U/L (15-37); Bilirubin,Total 0.4 mg/dL (0.00-1.00); Blood Urea Nitrogen 10 mg/dL (7-18); Calcium 8.8 mg/dL (8.5-10.1); Carbon Dioxide 29 mmol/L (21-32); Chloride 101 mmol/L (98-108); Estimated CRCL calculation 62 ml/min; Estimated Glomerular Filt Rate > 60; Glucose 110 mg/dL (70-99); Osmolality Calculated 284 mOsm/kg (285-295); Potassium 3.9 mmol/L (3.5-5.1); Sodium 137 mmol/L (136-145); Total Protein 6.7 g/dL (6.4-8.2)
[2020-12-08] MEDS: PROCHLORPERAZINE EDISYLATE 10 MG/2 ML VIAL IV PUSH (07:29)
[2020-12-08 07:43] VITALS: BP 135/85; PULSE 71; RESP 20; TEMP 36.7; O2SAT 100
[2020-12-08] MEDS: PANTOPRAZOLE SODIUM IV 40 MG VIAL IV PUSH (08:29)
[2020-12-08] MEDS: DOCUSATE SODIUM 100 MG CAPSULE PO (08:30)
[2020-12-08] MEDS: oxyCODONE HCL (*CRX) 10 MG TAB SR 12HR PO (08:30)
--- NOTE | 2020-12-08 10:45 | PC.NURSE ---
Patient discharged to home. Verbalized understanding discharge orders. Transported via wheelchair to personal vehicle. escorted.
--- NOTE | 2020-12-17 13:13 | PC.NURSE ---
Unable to contact for discharge call back.
--- NOTE | 2021-01-15 09:30 | PM.DS ---
DS: Admitting Diagnosis Admitting Diagnosis Admitting Diagnosis: Metastatic disease, nausea and vomiting, pain control DS: Discharge Diagnosis Discharge Diagnosis (1) Metastatic cancer: Code(s): C79.9 - Secondary malignant neoplasm of unspecified site Status: Acute Assessment and Plan: Patient diagnosed with stage III non-small cell lymphadenopathy and left hilar lymphadenopathy Lymph node biopsy completed August 02, 2019 Upper lobe nodule 2.8 cm with 6.5 x 3 x 2 cm prevascular nodule mass. Mildly enlarged mediastinal Radiation completed October 25, 2019, will be chemo with carboplatin and taxol completed October 18, 2019 Completed every 3 weeks chemo with carboplatin and on November 22, 2019 cycle 2 of 2 Maintenance durvaluma completed November 12, [address] Lozada Imaging indicates right renal mass 4 cm could possibly be renal cell cancer, sigmoid colonic wall thickening suspicious of adenocarcinoma, numerous pulmonary metastases, small nonobstructing right superior stone, metastatic bilateral retroperitoneal lymphadenopathy at the level of the renal arteries and vein (2) Abdominal pain: Code(s): R10.9 - Unspecified abdominal pain Status: Acute Assessment and Plan: Possibly secondary to kidney stone versus metastatic disease contniue zofran and Compazine continue pain medication Started oxycodone 10 mg every 12 hours (3) Nausea & vomiting: Qualifiers: Vomiting Intractability: non-intractable Vomiting type: unspecified Qualified Code(s): R11.2 - Nausea with vomiting, unspecified Code(s): R11.2 - Nausea with vomiting, unspecified Status: Acute Assessment and Plan: Possibly secondary to metastatic disease Continue Zofran and Compazine (4) Peripheral neuropathy: Qualifiers: 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 Qualified Code(s): G62.2 - Polyneuropathy due to other toxic agents Code(s): G62.9 - Polyneuropathy, unspecified Status: Acute Assessment and Plan: Chemo induced Continue home meds (5) Gastroesophageal reflux disease: Code(s): K21.9 - Gastro-esophageal reflux disease without esophagitis Status: Acute Assessment and Plan: Continue home meds (6) Shoulder pain, left: Qualifiers: Chronicity: unspecified Qualified Code(s): M25.512 - Pain in left shoulder Code(s): M25.512 - Pain in left shoulder Status: Acute Assessment and Plan: Continue pain medication (7) GERD (gastroesophageal reflux disease): Qualifiers: Esophagitis presence: without esophagitis Qualified Code(s): K21.9 - Gastro-esophageal reflux disease without esophagitis Code(s): K21.9 - Gastro-esophageal reflux disease without esophagitis Status: Acute Assessment and Plan: Continue home meds (8) Kidney stone: Code(s): N20.0 - Calculus of kidney Status: Acute Assessment and Plan: Imaging indicate nonobstructing stone and kidney mass patient had an appointment with urology last Tuesday Patient will follow up with urology on discharge DS: Summary Hospital Course Reason for hospitalization: Pain control and nausea and vomiting Hospital Course: Reason for hospitalization: Pain control and nausea and vomiting Hospital Course: This is a 60-year-old gentleman who presented to our ED with abdominal pain and nausea. patient has a past medical history of GERD metastatic non-small cell lung cancer and neck pain. Patient has been has been having abdominal pain with nausea for approximately 1 month patient visited his primary care physician Brenna 11/11 for abdominal pain and nausea vomiting he also visited his oncologist on 11/17/2020 for right flank pain and nausea and vomiting and a weight loss of 8 pounds. Patient was found to have a nonobstructive kidney stone and a mass on his kidney during she was also found to have numerous pulmonar
== END 2020-12-08 10:30 | disposition home or self-care (01) ==
LOC: CHSED 21:21 → CHS2ND 21:35
PROVIDERS: Nurse Practitioner; Admitting Provider Emergency Medicine; Emergency Provider Emergency Medicine; PCP Nurse Practitioner Family; Visit Provider Emergency Medicine
DX: R10.84 Generalized abdominal pain (principal); C77.2 Secondary and unspecified malignant neoplasm of intra-abdominal lymph nodes; C34.90 Malignant neoplasm of unspecified part of unspecified bronchus or lung; K21.9 Gastro-esophageal reflux disease without esophagitis; R93.5 Abnormal findings on diagnostic imaging of other abdominal regions, including retroperitoneum; N28.89 Other specified disorders of kidney and ureter; N20.0 Calculus of kidney; G62.0 Drug-induced polyneuropathy; T45.1X5A Adverse effect of antineoplastic and immunosuppressive drugs, initial encounter; Z87.891 Personal history of nicotine dependence
CPT/HCPCS: 36415; 74176; 80053; 81003; 83605; 83690; 84484; 85025; 85027; 93005; 96361; 96374; 96375; 96376; 99285; A9270; C9113; G0378; J0780; J1170; J2270; J2405; J7030

== ENCOUNTER 2020-12-09 12:54 | Outpatient (CLI) | payer OTHER, SELFPAY ==
--- NOTE | 2020-12-08 11:08 | PM.DS ---
DS: Admitting Diagnosis Admitting Diagnosis Admitting Diagnosis: Pain control and nausea and vomiting DS: Discharge Diagnosis Discharge Diagnosis (1) Metastatic disease: Qualifiers: Area of secondary neoplastic involvement: unspecified site Qualified Code(s): C79.9 - Secondary malignant neoplasm of unspecified site Code(s): C79.9 - Secondary malignant neoplasm of unspecified site Status: Acute Assessment and Plan: Patient diagnosed with stage III non-small cell lymphadenopathy and left hilar lymphadenopathy Lymph node biopsy completed August 02, 2019 Upper lobe nodule 2.8 cm with 6.5 x 3 x 2 cm prevascular nodule mass. Mildly enlarged mediastinal Radiation completed October 25, 2019, will be chemo with carboplatin and taxol completed October 18, 2019 Completed every 3 weeks chemo with carboplatin and on November 22, 2019 cycle 2 of 2 Maintenance durvaluma completed November 12, [address] Lozada Imaging indicates right renal mass 4 cm could possibly be renal cell cancer, sigmoid colonic wall thickening suspicious of adenocarcinoma, numerous pulmonary metastases, small nonobstructing right superior stone, metastatic bilateral retroperitoneal lymphadenopathy at the level of the renal arteries and vein (2) Abdominal pain: Qualifiers: Abdominal location: generalized Qualified Code(s): R10.84 - Generalized abdominal pain Code(s): R10.9 - Unspecified abdominal pain Status: Acute Assessment and Plan: Possibly secondary to kidney stone versus metastatic disease contniue zofran and Compazine continue pain medication Started oxycodone 10 mg every 12 hours (3) Nausea & vomiting: Qualifiers: Vomiting Intractability: non-intractable Vomiting type: unspecified Qualified Code(s): R11.2 - Nausea with vomiting, unspecified Code(s): R11.2 - Nausea with vomiting, unspecified Status: Acute Assessment and Plan: Possibly secondary to metastatic disease Continue Zofran and Compazine (4) Shoulder pain, left: Qualifiers: Chronicity: unspecified Qualified Code(s): M25.512 - Pain in left shoulder Code(s): M25.512 - Pain in left shoulder Status: Acute Assessment and Plan: Continue pain medication (5) Peripheral neuropathy: Qualifiers: 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 Qualified Code(s): G62.2 - Polyneuropathy due to other toxic agents Code(s): G62.9 - Polyneuropathy, unspecified Status: Acute Assessment and Plan: Chemotherapy induced (6) Renal mass, right: Code(s): N28.89 - Other specified disorders of kidney and ureter Status: Acute Assessment and Plan: Patient will follow up with urology in oncologist (7) GERD (gastroesophageal reflux disease): Qualifiers: Esophagitis presence: without esophagitis Qualified Code(s): K21.9 - Gastro-esophageal reflux disease without esophagitis Code(s): K21.9 - Gastro-esophageal reflux disease without esophagitis Status: Acute Assessment and Plan: Continue Protonix (8) Kidney stone: Code(s): N20.0 - Calculus of kidney Status: Acute Assessment and Plan: Imaging indicate nonobstructing stone and kidney mass patient had an appointment with urology last Tuesday Patient will follow up with urology on discharge DS: Summary Hospital Course Reason for hospitalization: Pain control and nausea and vomiting Hospital Course: This is a 60-year-old gentleman who presented to our ED with abdominal pain and nausea. patient has a past medical history of GERD metastatic non-small cell lung cancer and neck pain. Patient has been has been having abdominal pain with nausea for approximately 1 month patient visited his primary care physician Brenna 11/11 for abdominal pain and nausea vomiting he also visited his oncologist on 11/17/2020 for right flank pain and nause
--- NOTE | ~2020-12-09 | US_ITS ---
EXAMINATION: US biopsy lymph node DATE: 12/09/2020 14:16 INDICATION: Non-small cell left lung cancer with FDG avid left supraclavicular nodule. TECHNIQUE: The procedure including the risks and benefits was discussed with the patient. Risks discu ssed included bleeding and infection. The patient understood the risks and agreed to proceed. The sk in overlying the left supraclavicular region was prepped and draped in usual sterile fashion. Anest hetic was administered with 1% lidocaine subcutaneously. An 18 gauge core biopsy needle was advanced under continuous ultrasound observation to the lesion of interest. 4 core biopsy specimens were obt ained. The needle was removed and the entry site was cleaned and dressed. Post procedure ultrasound demonstrated no hemorrhage. FINDINGS: Ultrasound images demonstrate approximately 1.3 x 1.3 x 1.1 cm hypoechoic nodule near the j unction of the left subclavian artery and vein and the left jugular vein and carotid artery which cor responds in size and location to the FDG avid lesion on prior PET study. Subsequent images demonstrat e biopsy needle advanced into the lesion of concern. IMPRESSION: 1. Successful Ultrasound-guided biopsy of the 1.3 cm left supraclavicular nodule of concern. Reviewed, dictated and finalized at location A. IMPRESSION: 1. Successful Ultrasound-guided biopsy of the 1.3 cm left supraclavicular nodul e of concern.
== END 2020-12-09 12:55 | disposition home or self-care (01) ==
PROVIDERS: PCP Nurse Practitioner Family; Visit Provider Internal Medicine Hematology & Oncology
DX: C34.92 Malignant neoplasm of unspecified part of left bronchus or lung (principal)
CPT/HCPCS: 38505; 76942; 88305; 88342

== ENCOUNTER 2020-12-23 11:19 | Outpatient (CLI) | payer OTHER, SELFPAY ==
--- NOTE | ~2020-12-23 | XR_ITS ---
EXAMINATION: XR chest 2V DATE: 12/23/2020 11:47 INDICATION: Non-small cell cancer of left lung. Preop. TECHNIQUE: Frontal and lateral views of the chest were obtained. COMPARISON: Chest single view 08/15/2019, PET/CT 11/24/2020, CT abdomen and pelvis 12/06/2020 FINDINGS: There are airspace opacities in left upper upper lobe and superior segment left lower lobe with volume loss, consistent with radiation fibrosis. There are scattered nodules in the lungs. There are airspace opacities at left lung base. No pleural effusion or pneumothorax. The heart size is nor mal. There is a right internal jugular port with tip in right atrium. IMPRESSION: 1. Airspace opacities at left lung base, consistent with atelectasis versus pneumonia. 2. 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 3. Scattered pulmonary nodules, consistent with metastatic disease. Reviewed, dictated and finalized at location A. IMPRESSION: 1. Airspace opacities at left lung base, consistent with atelectasis versus pne umonia. 2. 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 3. Scattered pulmonary nodules, consistent with metastatic disease.
[2020-12-23 11:34] LABS: Basophils Absolute Auto 0.02 K/mm3 (0.00-0.10); Basophils Percent Auto 0.3 % (0.0-1.0); Eosinophils Absolute Auto 0.13 K/mm3 (0.02-0.50); Eosinophils Percent Auto 1.9 % (1.0-6.0); Hematocrit 40.2 % (40.0-54.0); Hemoglobin 13.2 g/dL (14.0-18.0); Immature Granulocyte Absolute 0.04 K/mm3 (0.00-0.00); Immature Granulocyte Percent A 0.6 % (0.0-0.0); Lymphocytes Absolute Auto 1.41 K/mm3 (1.10-4.50); Lymphocytes Percent Auto 20.1 % (18.0-42.0); Mean Corpuscular HGB Conc 32.8 g/dL (32.0-36.0); Mean Corpuscular Hemoglobin 31.7 pg (27.0-31.0); Mean Corpuscular Volume 96.6 fL (78.0-102.0); Mean Platelet Volume 8.4 fl (8.7-11.0); Monocytes Absolute Auto 1.05 K/mm3 (0.10-0.90); Neutrophils Absolute Auto 4.4 K/mm3 (1.7-7.2); Neutrophils Percent Auto 62.1 % (50.0-70.0); Platelet Count Result 346 K/mm3 (150-420); Red Blood Count 4.16 M/mm3 (4.70-6.10); Red Cell Distribution Width 12.5 % (11.6-14.4)
--- NOTE | 2020-12-23 11:34 | ECG_ITS ---
Measurements Intervals [place] Rate: 85 P: 66 SD: 127 QRS: 8 QRSD: 92 T: 83 QT: 348 QTc: 415 Interpretive Statements SINUS RHYTHM INFERIOR INFARCT, AGE INDETERMINATE NONSPECIFIC ST & T-WAVE ABNORMALITY- ANT/HIGH LATERAL LEADS BASELINE ARTIFACT- I, II, V3-V6 ABNORMAL ECG Electronically Signed On 12-23-2020 13:35:12 CDT by Red Reis D.O.
[2020-12-23 11:36] LABS: Appearance Urine Clear (Clear); Bilirubin Urine 1+ (Negative); Color Urine Yellow (Yellow); Glucose Urine UA Negative (Negative); Ketones Urine Negative (Negative); Leukocyte Esterase Ur Negative LEU/UL (Negative); Nitrate Urine Negative (Negative); Protein Urine Trace (Negative); Specific Grav Ur >= 1.030 (1.010-1.020); pH Urine 5.5 (5.0-8.0)
[2020-12-23 11:40] LABS: Add Urine Microscopic? YES; Bacteria Urine Trace /hpf; Blood Urine Trace-Intact (Negative); Mucus Urine Few /lpf; WBC Urine 0-3 /hpf (0-3)
[2020-12-23 12:15] LABS: Alanine Aminotransferase 22 U/L (16-63); Alkaline Phosphatase 93 U/L (46-116); Anion Gap 7 mmol/L (8-16); Aspartate Amino Transferase 10 U/L (15-37); Bilirubin,Total 0.4 mg/dL (0.00-1.00); Blood Urea Nitrogen 12 mg/dL (7-18); Calcium 9.8 mg/dL (8.5-10.1); Carbon Dioxide 31 mmol/L (21-32); Chloride 99 mmol/L (98-108); Estimated Glomerular Filt Rate > 60; Glucose 83 mg/dL (70-99); Osmolality Calculated 282 mOsm/kg (285-295); Potassium 4.2 mmol/L (3.5-5.1); Sodium 137 mmol/L (136-145); Total Protein 7.1 g/dL (6.4-8.2)
== END 2020-12-23 11:20 | disposition home or self-care (01) ==
LOC: CHSLAB 11:23
PROVIDERS: PCP Nurse Practitioner Family; Visit Provider Nurse Practitioner Family
DX: Z01.818 Encounter for other preprocedural examination (principal); Z87.898 Personal history of other specified conditions
CPT/HCPCS: 36415; 71046; 80053; 81001; 85025; 93005

== ENCOUNTER 2020-12-31 11:56 | Observation (INO) | payer OTHER, SELFPAY ==
--- NOTE | ~2020-12-31 | XR_ITS ---
XR abdomen/kub 1V 12/31/2020 21:24 Indication: Abdominal pain with constipation Procedure: KUB Comparison: Comparison to multiple prior studies sequentially, with oldest reviewed study dated 05/27. Findings: There is a right internal ureteral stent in expected position. There is moderate gas throug hout the small bowel and colon. Moderate colonic fecal loading. Bowel content limits evaluation for r enal stones. No acute osseous abnormality. Impression: 1: Moderately distended small bowel and colon, likely adynamic ileus. Moderate colonic fecal loading. Reviewed, dictated and finalized at location A. Impression: 1: Moderately distended small bowel and colon, likely adynamic ileus. Moderate colonic fecal loading.
--- NOTE | ~2020-12-31 | CT_ITS ---
EXAMINATION: CT biopsy renal DATE: 01/01/2021 14:26 INDICATION: Right renal mass in the setting of known metastatic small cell lung cancer. TECHNIQUE: The procedure including the risks and benefits was discussed with the patient. Risks discu ssed included bleeding and infection. The patient understood the risks and agreed to proceed. The sk in overlying the right kidney was prepped and draped in usual sterile fashion. Anesthetic was admini stered with 1% lidocaine subcutaneously. A 16 gauge outer needle was advanced under CT guidance to t he lesion of interest. An 18 gauge core biopsy needle was then advanced into the lesion. 5 core biops y specimens were obtained. The outer needle was removed and the entry site was cleaned and dressed. There were no immediate complications. The dose-length product was 257.02 mGy-cm. FINDINGS: CT images demonstrate the outer needle tip in the right kidney at the margin of a previous noted renal mass. An internal ureteral stent is partially visualized in the right renal hilum. IMPRESSION: 1. Successful CT-guided biopsy of indeterminate right renal mass which could represent either metasta tic disease or a primary renal cell carcinoma. Reviewed, dictated and finalized at location A. IMPRESSION: 1. Successful CT-guided biopsy of indeterminate right renal mass which could re present either metastatic disease or a primary renal cell carcinoma.
--- NOTE | ~2020-12-31 | XR_ITS ---
EXAMINATION: XR chest 2V DATE: 12/31/2020 13:10 INDICATION: Weakness. TECHNIQUE: Frontal and lateral views of the chest were obtained. COMPARISON: Chest 2 views 12/23/2020 FINDINGS: There is chronic volume loss of left hemithorax. There are airspace opacities in left upper lobe and superior segment left lower lobe, consistent with radiation fibrosis. There is mild scarrin g at right lung apex. There are airspace opacities at left lung base. There are scattered nodules in the lungs. No pleural effusion or pneumothorax. The heart size is normal. There is a right internal j ugular port with tip in right atrium. IMPRESSION: 1. Stable airspace opacities at left lung base, consistent with atelectasis/scarring versus pneumonia . 2. 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 3. Scattered pulmonary nodules, consistent with metastatic disease. Reviewed, dictated and finalized at location B. IMPRESSION: 1. Stable airspace opacities at left lung base, consistent with atelectasis/sca rring versus pneumonia. 2. 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 3. Scattered pulmonary nodules, consistent with metastatic disease.
[2020-12-31 12:11] VITALS: BP 133/76; PULSE 101; RESP 14; TEMP 36.8; O2SAT 99
--- NOTE | 2020-12-31 12:40 | PC.NURSE ---
Arrives via EC accompanied by , sent to ED from oncology appt today d/t worsening nausea, weakness, poor PO intake, recent 20lb weight loss. Hx lung CA with mets, has been receiving treatment x1 year and stopped in November. Was told recent mass in kidney and had ureteral stent placed to relieve the pressure , reports minimal relief but sts he is able to freely urinate and denies urinary s/s. Afebrile. Also reports worsening pain and oxycodone not helping
[2020-12-31 13:02] LABS: Basophils Percent Auto 0.3 % (0.2-1.2); Eosinophils Absolute Auto 0.1 K/mm3 (0-0.3); Hematocrit 36.8 % (42.0-52.0); Hemoglobin 12.1 g/dL (14.0-18.0); Immature Granulocyte Absolute 0.01 K/mm3 (0.00-0.031); Immature Granulocyte Percent A 0.1 % (0-0.5); Lymphocytes Absolute Auto 1.24 K/mm3 (0.9-3.2); Lymphocytes Percent Auto 17.9 % (18.3-44.2); Mean Corpuscular HGB Conc 32.9 g/dl (32-36); Mean Corpuscular Hemoglobin 31.4 pg (26-34); Mean Corpuscular Volume 95.6 fl (80-100); Mean Platelet Volume 8.5 fl (7.4-10.4); Monocytes Absolute Auto 0.8 K/mm3 (0.1-0.6); Monocytes Percent Auto 11.7 % (2.6-8.5); Neutrophils Absolute Auto 4.8 K/mm3 (1.3-6.7); Platelet Count Result 296 k/mm3 (150-375); Red Blood Count 3.85 M/mm3 (4.6-6.20); Red Cell Distribution Width 12.4 % (11.5-14.5); White Blood Count 6.9 K/mm3 (4.5-10.0)
[2020-12-31 13:12] LABS: Alanine Aminotransferase 14 U/L (4-50); Albumin Level 4.1 g/dL (3.5-5.1); Alkaline Phosphatase 86 U/L (38-126); Anion Gap 5 mmol/L (8-16); Aspartate Amino Transferase 21 U/L (17-59); Bilirubin,Total 0.2 mg/dL (0.2-1.3); Blood Urea Nitrogen 16 mg/dL (9-20); Calcium 9.2 mg/dL (8.4-10.2); Carbon Dioxide 31 mmol/L (22-30); Chloride 98 mmol/L (98-107); Estimated CRCL calculation 77 ml/min; Estimated Glomerular Filt Rate > 60; Glucose 118 mg/dL (75-110); Lipase 38 U/L (23-300); Potassium 3.9 mmol/L (3.4-5.0); Sodium 134 mmol/L (137-145)
[2020-12-31 13:15] LABS: INR 0.9; Prothrombin Time 13.2 Seconds (11.1-14.7)
[2020-12-31 13:16] LABS: Partial Thromboplastin Time 30.5 SECONDS (22.3-36.8)
[2020-12-31] MEDS: LACTATED RINGERS 1,000 ML 999 ML IV CONT (13:26)
[2020-12-31 13:35] LABS: Add Urine Microscopic? YES; Appearance Urine Cloudy (Clear); Bilirubin Urine Negative (Negative); Blood Urine 3+ (Negative); Color Urine Yellow (Yellow); Glucose Urine UA Negative (Negative); Ketones Urine 1+ mg/dL (Negative); Leukocyte Esterase Ur 3+ LEU/UL (Negative); Mucus Urine Heavy /lpf; Nitrate Urine Negative (Negative); Protein Urine 2+ mg/dL (Negative); RBC Urine >75 /hpf (0-2); Specific Grav Ur 1.028 (1.001-1.035); WBC Urine >75 /hpf
--- NOTE | 2020-12-31 14:05 | PC.NURSE ---
Dr Loyd at bedside to update pt and on POC
[2020-12-31] MEDS: HYDROmorphone HCL INJ (*CRX) 1 MG/ML SYR IV PUSH ×3 (15:04→22:26)
[2020-12-31 15:05] VITALS: BP 136/79; PULSE 76; RESP 17; O2SAT 99
--- NOTE | 2020-12-31 15:11 | ED.GENADULT ---
HPI - General Adult General Chief complaint: Weakness Stated complaint: kidney cancer/decreased po Time Seen by Provider: 12/31/20 12:45 Source: patient and family Mode of arrival: ambulatory Limitations: no limitations History of Present Illness HPI narrative: 60-year-old male Effectively today presents with complaint of poor response to cancer treatment He has been getting treatment for metastatic non-small cell lung cancer He has a new mass on his right kidney and recently had a stent placed for obstructive symptoms there Apart from that he has ongoing anorexia weight loss constipation from his pain medications inadequate pain control from his pain medications difficulties with scheduling a renal biopsy and a disagreement about whether he should possibly be having a nephrectomy or not Related Data Home Medications Medication Instructions Recorded Confirmed cyanocobalamin (vitamin B-12) 2,500 mcg PO DAILY 07/31/19 12/06/20 pyridoxine (vitamin B6) 100 mg PO DAILY 07/31/19 12/06/20 lidocaine 1 applic TOPICAL PRN PRN 09/03/19 12/06/20 alprazolam 0.25 mg PO HS PRN 04/23/20 12/06/20 Allergies Allergy/AdvReac Type Severity Reaction Status Date / Time amoxicillin [From Augmentin] Allergy Rash Verified 12/23/20 11:02 clavulanic acid Allergy Rash Verified 12/23/20 11:02 [From Augmentin] Review of Systems Review of Systems: All systems reviewed & are unremarkable except as noted in HPI and below Constitutional: Constitutional: Denies chills, Reports fatigue, Denies fever(s), Denies headache(s) and Reports weakness Comments: Weight loss Eyes: Eyes: Reports no additional eye complaints and Denies change in vision ENT: Denies headache(s) and Denies sore throat Cardiovascular: Cardiovascular: Reports chest pain and Denies dyspnea Respiratory: Respiratory: Reports cough and Reports dyspnea Gastrointestinal: Gastrointestinal: Reports abdominal pain, Reports constipation, Denies diarrhea, Reports nausea and Denies vomiting Genitourinary: Genitourinary: Denies hematuria, Denies dysuria and Denies urinary frequency Musculoskeletal: Musculoskeletal: Reports myalgias, Denies deformity, Reports arthralgias, Denies joint swelling and Denies numbness Integumentary/Breasts: Skin/Breast: Denies rash and Denies wounds Neurologic: Denies headache(s), Denies focal weakness and Denies numbness Psychiatric: Psychiatric: Reports no additional psychiatric complaints Endocrine: Endocrine: Reports no additional endocrine complaints Hematologic/Lymphatic: Hematologic/Lymphatic: Reports no additional hematologic/lymphatic complaints Allergic/Immunologic: Allergic/Immunologic: Reports no additional allergic/immunologic complaints [facility] Past Medical History Medical History GERD (gastroesophageal reflux disease) Metastatic non-small cell lung cancer Neck pain Surgical History Surgical History History of vasectomy Family History Family History Mother Family history of type 2 diabetes mellitus Family history of renal failure Father Family history of coronary artery disease Family history of type 2 diabetes mellitus Social History Social History Smoking packs per day: 0.5 Smoking cigarettes per day: 10.0 Years smoked: 45 Smoking pack-years: 22.50 Smoking status: Never smoker Tobacco type: cigarettes Smoking end date: 08/06/19 Alcohol intake: never Substance use: never Additional occupation/education comments: [employer] Gender identity (if verbalized by the patient): Male Spiritual care concerns: No Exam Const: General: cooperative, no acute distress, alert and ill appearing Orientation/consciousness: patient oriented x3
[2020-12-31 16:07] VITALS: BP 143/75; PULSE 87; RESP 19; O2SAT 100
[2020-12-31] MEDS: polyethylene glycoL 3350 17 GM POWD.PACK PO (16:07)
--- NOTE | 2020-12-31 16:45 | PC.NURSE ---
Hospitalist at bedside. Non-labored respirations, call light within reach, pt and updated on POC
--- NOTE | 2020-12-31 17:15 | PM.IMHP ---
H&P: HPI History of Present Illness Date/Time: 12/31/20 17:15 Chief Complaint: Weakness. Narrative: This is a a 60-year-old male with history of cancer who presented to the emergency department earlier today from Dr. Lozada's office with complaints of weakness. He was diagnosed with non-small cell lung cancer in July 2019 and is status post chemoradiation. A recent PET scan showed evidence of new bilateral pulmonary nodules consistent with metastatic disease as well as a new masslike region in the posterior interpolar region of the right kidney representing either metastatic disease or primary renal cell carcinoma. Left supraclavicular lymph node biopsy done on 12/09/2020 demonstrated metastatic squamous cell carcinoma, likely from a primary lung origin. He has yet to have a biopsy of the kidney mass but did have a ureteral stent placed within the last week somewhere and [place]. In any event he had an appoint with Dr. Lozada today to discuss his tests and plans for upcoming biopsy. He was then directed to the emergency department after the patient reported unrelenting diffuse, sharp abdominal pain as well as poor appetite and ongoing nausea. With further questioning this abdominal pain has been plaguing him for quite some time and it is not new or worse. It sounds like he refused to go home ?until something gets figured out? regarding his upcoming kidney biopsy and what is to come with regards to treatment. He is also quite frustrated given ongoing abdominal pain and conflicting opinions from different doctors, one who thinks he should have a nephrectomy due to his symptomatology and another who feels nephrectomy would not be appropriate at this time. His workup in the emergency department was pretty unremarkable aside from evidence of urinary tract infection of which he does not really have any symptoms. He denies fever, chills, and sweats. No vomiting, diarrhea, or dysuria. Review of Systems Review of Systems: Narrative: Twelve systems were reviewed with pertinent positives and negatives as per HPI. No cold or flu symptoms. I do not think he has had much change in weight. No syncope or near syncope. He is always short of breath and that is unchanged. No cough. No exposure to those positive for COVID-19. He is constipated due to his narcotics, which he acetate quite frequently as a only take the edge off of his pain for maybe 2 hours. Except as documented, all other systems were reviewed and are negative. [facility] Past Medical History Medical History (Updated 12/31/20 @ 21:10 by Emmanuelle Meneses PA-C) Gastroesophageal reflux disease Metastatic non-small cell lung cancer Diagnosed with poorly differentiated non-small cell lung cancer arising in the left upper lobe in July 2019, status post chemo radiation per Drs. Lozada and Ubaldo. Nephrolithiasis Peripheral neuropathy Secondary to chemotherapy. Right kidney mass PET scan on 11/24/2020 showed a masslike region in the posterior interpolar region of the right kidney representing either metastatic disease or primary renal cell carcinoma. Mild hydronephrosis was also noted in he is status post ureteral stent per Dr. Villareal at [facility]. Squamous cell carcinoma Left supraclavicular lymph node biopsy on 12/09/2020 came back positive for metastatic squamous cell carcinoma likely from lung origin. Surgical History Surgical History (Updated 12/31/20 @ 20:47 by Emmanuelle Meneses PA-C) History of ureter stent Right ureteral stent placed 12/[address] Villareal at [facility]. History of vasectomy Family History Family History Mother Family history of type 2 diabetes mellitus Family history of renal failure Father Family history of coronary artery disease Family history of type 2 diabetes mellitus Social History Social History (Updated 12/31/20 @ 21:05 by Emmanuelle Meneses PA-C) Social Histor
[2020-12-31 17:45] VITALS: BP 149/78; PULSE 88; RESP 17; O2SAT 96
--- NOTE | 2020-12-31 18:42 | ADMGEN ---
This patient, Charli Rosas, was admitted to Medical Room 249-01. Patient/family oriented to hospital policies and general routines including ID bracelet, bed and alarms, visiting hours, pain management, procedures, bathroom and other care routines, personal items, smoking policy, room service/diet, and visiting hours. Information on how to activate the Rapid Response Team has been discussed. Patient/Family are encouraged to report perceived risks to care and to ask questions if they do not understand what they are told or what they should do.
[2020-12-31 18:53] VITALS: BP 150/78; PULSE 93; RESP 20; TEMP 36.1; O2SAT 99; BMI 26.3
[2020-12-31] MEDS: LACTATED RINGERS 1,000 ML 125 ML IV CONT (19:01)
[2020-12-31 19:15] VITALS: BP 156/82; PULSE 94; RESP 18; TEMP 36.6; O2SAT 97
[2020-12-31] MEDS: FAMOTIDINE 20 MG/2 ML VIAL IV PUSH (21:00)
[2020-12-31] MEDS: ACETAMINOPHEN 325 MG TABLET 650 MG PO (21:00)
[2021-01-01] MEDS: HYDROmorphone HCL INJ (*CRX) 1 MG/ML SYR IV PUSH ×5 (02:39→20:12)
[2021-01-01] MEDS: LACTATED RINGERS 1,000 ML 125 ML IV CONT (02:53)
[2021-01-01 04:20] VITALS: BP 151/80; PULSE 84; RESP 16; TEMP 36.3; O2SAT 94
[2021-01-01 05:21] LABS: Basophils Percent Auto 0.3 % (0.2-1.2); Eosinophils Absolute Auto 0.1 K/mm3 (0-0.3); Eosinophils Percent Auto 0.8 % (0-4.4); Hematocrit 35.4 % (42.0-52.0); Hemoglobin 11.7 g/dL (14.0-18.0); Immature Granulocyte Absolute 0.03 K/mm3 (0.00-0.031); Immature Granulocyte Percent A 0.4 % (0-0.5); Lymphocytes Absolute Auto 1.18 K/mm3 (0.9-3.2); Lymphocytes Percent Auto 16.5 % (18.3-44.2); Mean Corpuscular HGB Conc 33.1 g/dl (32-36); Mean Corpuscular Hemoglobin 31.7 pg (26-34); Mean Corpuscular Volume 95.9 fl (80-100); Mean Platelet Volume 8.5 fl (7.4-10.4); Monocytes Absolute Auto 0.9 K/mm3 (0.1-0.6); Monocytes Percent Auto 12.6 % (2.6-8.5); Neutrophils Percent Auto 69.4 % (45.5-73.1); Platelet Count Result 290 k/mm3 (150-375); Red Blood Count 3.69 M/mm3 (4.6-6.20); Red Cell Distribution Width 12.4 % (11.5-14.5); White Blood Count 7.1 K/mm3 (4.5-10.0)
[2021-01-01 05:29] LABS: Anion Gap 4 mmol/L (8-16); Blood Urea Nitrogen 10 mg/dL (9-20); Calcium 9.2 mg/dL (8.4-10.2); Carbon Dioxide 32 mmol/L (22-30); Chloride 97 mmol/L (98-107); Estimated CRCL calculation 86 ml/min; Estimated Glomerular Filt Rate > 60; Glucose 112 mg/dL (75-110); Sodium 133 mmol/L (137-145)
[2021-01-01] MEDS: CENTRAL LINE FLUSH 10 ML IV PUSH ×3 (07:52→20:13)
[2021-01-01] MEDS: FAMOTIDINE 20 MG/2 ML VIAL IV PUSH ×2 (08:37→20:12)
[2021-01-01] MEDS: PYRIDOXINE HCL 50 MG TABLET 100 MG PO (08:37)
[2021-01-01] MEDS: CYANOCOBALAMIN 500 MCG TABLET 2500 MCG PO (08:38)
[2021-01-01] MEDS: ASPIRIN 81 MG CHEWABLE TABLET PO (08:38)
[2021-01-01 08:41] VITALS: RESP 16; O2SAT 95
--- NOTE | 2021-01-01 10:22 | PM.IMPN ---
Progress Note: A&P Assessment and Plan (1) Generalized weakness: Code(s): R53.1 - Weakness Status: Acute Assessment and Plan: Multifactorial in etiology including metastatic cancer, deconditioning, and poor intake. Ambulating independently. (2) Abdominal pain: Code(s): R10.9 - Unspecified abdominal pain Status: Acute Assessment and Plan: This is been an ongoing issue with the patient and is unchanged, may be related to mass effect from kidney mass. Constipation is likely contributing. We discussed staying on a daily bowel regimen due to intermittent constipation from his pain medications. Continue Miralax and use suppository if needed. Continue other supportive care with his pain medications and antiemetics, PPI. (3) Metastatic cancer: Code(s): C79.9 - Secondary malignant neoplasm of unspecified site Status: Acute Assessment and Plan: Diagnosed with NSCLC in Jul 2019 and has completed chemotherapy and radiation at that time. Port right chest. He has a right renal mass and may represent metastatic disease vs. primary renal cell carcinoma. He describes difficulty getting his renal biopsy scheduled and is hopeful it can be done while he is here. I have reached out to Dr Lozada to inquire when his bx may be done. Recent left supraclavicular lymph node biopsy showed metastatic squamous cell carcinoma likely of lung origin. Continue oncology recommendations. Edit: Spoke with Dr Lozada - recommends US guided renal biopsy to be done here. Hopeful it may be done today after kept NPO for 6 hours since he has already eaten breakfast. (4) Elevated blood pressure reading: Code(s): R03.0 - Elevated blood-pressure reading, without diagnosis of hypertension Status: Acute Assessment and Plan: Blood pressures have been running in the 140s 150 systolic. May very well be related to pain since he has some recent readings within normal range. Continue to monitor for now. (5) Urinary tract infection: Code(s): N39.0 - Urinary tract infection, site not specified Status: Suspected Assessment and Plan: UA may be abnormal due to recent urinary stenting vs acute UTI. He has been started on ceftriaxone, pending urine culture and blood cultures. Subjective Date/time seen: 01/01/21 0945 Interval history: Mr. Rosas is a 60yo F with metastatic lung cancer, R renal mass with hydronephrosis s/p recent R ureteral stent who presented to ED from Dr Lozada's office due to abdominal pain, nausea, and not able to eat much. He reports these symptoms have been ongoing for several weeks. He notes he gets constipated from his narcotic pain medications. He tells me he was nauseous this morning without vomiting and describes a mild diffuse abdominal ache. He used enema at home 12/30 and had a BM at that time. Has passed flatus this AM. Denies chest pain or shortness of breath. He is fatigued and tired. Has nonproductive cough and tells me coughing induces his abdominal cramp. Review of Systems Review of Systems: All systems reviewed & are unremarkable except as noted in HPI and below Exam Narrative: Exam Narrative: General: Male resting sitting up in bed no acute distress. HEENT: Wearing glasses, EOMI. Sclerae anicteric. Oral mucosa moist. Neck: Supple. Respiratory: Speaking in full sentences. Diminished breath sounds in the left upper lobe. Respirations even and nonlabored, tolerating room air. Chest: Port-A-Cath in the right anterior chest. Cardiovascular: Rate and rhythm are regular. No murmur, rub, or gallop. Gastrointestinal: Abdomen is soft and slightly protuberant. He is diffusely tender to even mild palpation throughout the abdomen. Demonstrates volu
[2021-01-01] MEDS: ONDANSETRON INJ 4 MG/2 ML VIAL IV PUSH ×2 (10:45→15:54)
[2021-01-01 10:50] VITALS: BMI 26.3
[2021-01-01 12:00] LABS: INR 0.9; Prothrombin Time 13.1 Seconds (11.1-14.7)
[2021-01-01 12:01] LABS: Partial Thromboplastin Time 31.2 SECONDS (22.3-36.8)
[2021-01-01 12:56] VITALS: BP 131/58; PULSE 89; RESP 16; TEMP 36.2; O2SAT 97
--- NOTE | 2021-01-01 13:09 | PDONCCN ---
HPI - Date of Consult Date/Time: 01/01/21 13:09 Requesting Physician: CARLY Guerra Primary Care Provider: Brenna Gillespie NP - Consult Narrative Reason for consult: Metastatic non-small cell lung cancer Narrative: Charli Rosas is a 60 year old male with metastatic non-small cell lung cancer initially diagnosed with early stage cancer subsequently she he developed bilateral pulmonary nodules. He recently had left supraclavicular lymph node biopsy on December 09, 2020 that showed metastatic squamous cell carcinoma. Patient also found to have right kidney mass. He had right ureteral stent placed just last week. He was seen by Dr. mckeon per Neurology Service. He came into the office with significant pain involving the right flank. He was admitted to the hospital with generalized weakness and significant right flank and abdominal pain. He denies any fevers and chills. He has been eating poorly and has lost weight recently. Denies any diarrhea. Denies any dysuria and hematuria. Review of Systems - Review of Systems All systems reviewed & are unremarkable except as noted in HPI and bel - Neurologic Reports weakness, Denies headache(s), Denies focal weakness, Denies numbness PMF Medical History: Medical History (Last Updated 12/31/20 @ 21:03 by Emmanuelle Meneses PA-C) Gastroesophageal reflux disease Metastatic non-small cell lung cancer Diagnosed with poorly differentiated non-small cell lung cancer arising in the left upper lobe in July 2019, status post chemo radiation per Drs. Lozada and Ubaldo. Nephrolithiasis Peripheral neuropathy Secondary to chemotherapy. Right kidney mass PET scan on 11/24/2020 showed a masslike region in the posterior interpolar region of the right kidney representing either metastatic disease or primary renal cell carcinoma. Mild hydronephrosis was also noted in he is status post ureteral stent per Dr. Mckeon at [facility]. Squamous cell carcinoma Left supraclavicular lymph node biopsy on 12/09/2020 came back positive for metastatic squamous cell carcinoma likely from lung origin. Surgical History: Surgical History (Last Updated 12/31/20 @ 20:47 by Emmanuelle Meneses PA-C) History of ureter stent Right ureteral stent placed 12/[address] Mckeon at [facility]. History of vasectomy Family History: Family History (Last Reviewed 12/31/20 @ 21:03 by Emmanuelle Meneses PA-C) Mother Family history of type 2 diabetes mellitus Family history of renal failure Father Family history of coronary artery disease Family history of type 2 diabetes mellitus - Social History Social History: Social History (Last Updated 12/31/20 @ 21:05 by Emmanuelle Meneses PA-C) Gender Identity: Gender identity (if verbalized by the patient): Male Sexual Orientation: Sexual Orientation (if Verbalized by the Patient): Straight or Heterosexual Alcohol Use: Alcohol intake: never Substance Use: Substance use: never Substance use type: does not use Others: Spiritual care concerns: No Smoking Status: Smoking status: Former smoker Smoking end date: 08/06/19 Smoking Pack-years: Smoking packs per day: 1 Smoking cigarettes per day: 20.0 Years smoked: 35 Smoking pack-years: 35.00 Meds Home Medications Medication Instructions Recorded Confirmed Type cyanocobalamin (vitamin B-12) 2,500 mcg PO DAILY 07/31/19 12/31/20 History pyridoxine (vitamin B6) 100 mg PO DAILY 07/31/19 12/31/20 History albuterol sulfate 90 mcg/actuation 1 puff INHALATION Q4H PRN #8 gm 08/08/19 12/31/20 Rx aerosol inhaler lidocaine 1 applic TOPICAL PRN PRN 09/03/19 12/31/20 History alprazolam 0.25 mg PO HS PRN 04/23/20 12/31/20 History ondansetron HCl 8 mg tablet 8 mg PO Q8H PRN #20 tablet 11/06/20 12/31/20 Rx oxycodone-acetaminophen 1 tablet PO Q4-6H PRN #30 tablet 12/08/20 12/31/20 Rx pantoprazole 20 mg PO HS 2
--- NOTE | 2021-01-01 13:30 | PC.NURSE ---
To CT via bed for CT guided right renal biopsy.
[2021-01-01 14:00] VITALS: BP 137/75; PULSE 87; RESP 16; TEMP 36.8; O2SAT 95
[2021-01-01 14:28] VITALS: BP 145/81; PULSE 90; RESP 18; O2SAT 98
--- NOTE | 2021-01-01 14:30 | PC.NURSE ---
Returned from CT via bed.
[2021-01-01] MEDS: PANTOPRAZOLE SOD SESQUIHYDRATE 20 MG TAB PO (20:13)
[2021-01-01 21:03] VITALS: BP 151/56; PULSE 73; RESP 16; TEMP 36; O2SAT 98
[2021-01-02] MEDS: HYDROmorphone HCL INJ (*CRX) 1 MG/ML SYR IV PUSH ×3 (04:14→08:21)
[2021-01-02 05:29] VITALS: BP 134/70; PULSE 80; RESP 16; TEMP 36.3; O2SAT 95
[2021-01-02] MEDS: CENTRAL LINE FLUSH 10 ML IV PUSH (05:32)
[2021-01-02 05:41] LABS: Basophils Percent Auto 0.3 % (0.2-1.2); Eosinophils Absolute Auto 0.1 K/mm3 (0-0.3); Eosinophils Percent Auto 1.7 % (0-4.4); Hematocrit 35.4 % (42.0-52.0); Hemoglobin 11.3 g/dL (14.0-18.0); Immature Granulocyte Absolute 0.03 K/mm3 (0.00-0.031); Immature Granulocyte Percent A 0.4 % (0-0.5); Lymphocytes Absolute Auto 1.02 K/mm3 (0.9-3.2); Lymphocytes Percent Auto 13.7 % (18.3-44.2); Mean Corpuscular HGB Conc 31.9 g/dl (32-36); Mean Corpuscular Hemoglobin 31.1 pg (26-34); Mean Corpuscular Volume 97.5 fl (80-100); Mean Platelet Volume 8.7 fl (7.4-10.4); Monocytes Absolute Auto 1.1 K/mm3 (0.1-0.6); Monocytes Percent Auto 14.4 % (2.6-8.5); Neutrophils Absolute Auto 5.2 K/mm3 (1.3-6.7); Neutrophils Percent Auto 69.5 % (45.5-73.1); Platelet Count Result 297 k/mm3 (150-375); Red Blood Count 3.63 M/mm3 (4.6-6.20); Red Cell Distribution Width 12.4 % (11.5-14.5); White Blood Count 7.5 K/mm3 (4.5-10.0)
[2021-01-02 06:02] LABS: Alanine Aminotransferase 14 U/L (4-50); Albumin Level 3.8 g/dL (3.5-5.1); Alkaline Phosphatase 71 U/L (38-126); Anion Gap 5 mmol/L (8-16); Aspartate Amino Transferase 28 U/L (17-59); Bilirubin,Total 0.2 mg/dL (0.2-1.3); Blood Urea Nitrogen 11 mg/dL (9-20); Calcium 9.3 mg/dL (8.4-10.2); Carbon Dioxide 34 mmol/L (22-30); Chloride 95 mmol/L (98-107); Estimated CRCL calculation 77 ml/min; Estimated Glomerular Filt Rate > 60; Glucose 131 mg/dL (75-110); Magnesium 1.9 mg/dL (1.6-2.3); Potassium 3.9 mmol/L (3.4-5.0); Sodium 134 mmol/L (137-145)
[2021-01-02] MEDS: ONDANSETRON INJ 4 MG/2 ML VIAL IV PUSH (08:22)
[2021-01-02] MEDS: CYANOCOBALAMIN 500 MCG TABLET 2500 MCG PO (08:26)
[2021-01-02] MEDS: FAMOTIDINE 20 MG/2 ML VIAL IV PUSH (08:26)
[2021-01-02] MEDS: polyethylene glycoL 3350 17 GM POWD.PACK PO (08:26)
[2021-01-02] MEDS: ASPIRIN 81 MG CHEWABLE TABLET PO (08:26)
[2021-01-02] MEDS: PYRIDOXINE HCL 50 MG TABLET 100 MG PO (08:27)
--- NOTE | 2021-01-02 09:55 | PM.DS ---
DS: Admitting Diagnosis Admitting Diagnosis Admitting Diagnosis: Pain, metastatic cancer DS: Discharge Diagnosis Discharge Diagnosis (1) Generalized weakness: Code(s): R53.1 - Weakness Status: Acute Assessment and Plan: Date of Admission 12/31/20 Date of Discharge 01/02/21 Mr. Rosas is a 60yo with known metastatic non-small cell lung cancer who presented to the ED for evaluation of lack of appetite, poor nutrition, generalized pain, abdominal and right flank discomfort. He follows with Dr. Lozada for his lung cancer and he recently had a lymph node biopsy performed last month that confirmed metastasis. He was also recently noted to have a right renal mass on imaging, was referred to Urology outpatient. Dr. Villareal placed a right ureteral stent 12/24/20 due to flank pain and hydronephrosis. Dr. Lozada and Dr. Villareal were working on arranging outpatient biopsy of right renal mass to determine if his metastasis from his lung cancer or a new primary renal cell carcinoma. The biopsy is needed to form the next steps of his treatment plan. Patient was at appointment at Dr. Lozada's office day of arrival and was sent to ED due to his multiple complaints. Dr. Lozada recommended completing the renal biopsy while he was hospitalized. Patient underwent CT-guided biopsy of right renal mass on 01/01/21 and tolerated the procedure well. His abdominal pain was tolerable and he was tolerating a diet or vomiting. Urinalysis was abnormal, urine culture grew Enterococcus. Due to his allergy to amoxicillin he was discharged with oral nitrofurantoin. He is hemodynamically stable for discharge and comfortable with his discharge plan today. He is instructed to make phone calls to follow up with Dr. Lozada as well as Dr. Villareal, and PCP. Generalized weakness multifactorial in etiology including metastatic cancer, deconditioning, and poor intake. Ambulating independently. (2) Abdominal pain: Code(s): R10.9 - Unspecified abdominal pain Status: Acute Assessment and Plan: This is been an ongoing issue with the patient and is unchanged, may be related to mass effect from kidney mass. Constipation is likely contributing. We discussed staying on a daily bowel regimen due to intermittent constipation from his pain medications. Continue Miralax and use suppository if needed. Continue other supportive care with his pain medications and antiemetics, PPI. (3) Metastatic cancer: Code(s): C79.9 - Secondary malignant neoplasm of unspecified site Status: Acute Assessment and Plan: Diagnosed with NSCLC in Jul 2019 and has completed chemotherapy and radiation at that time. Port right chest. He has a right renal mass and may represent metastatic disease vs. primary renal cell carcinoma. Underwent CT-guided biopsy 01/01/21; will follow up with Dr Villareal and Dr Lozada. Recent left supraclavicular lymph node biopsy showed metastatic squamous cell carcinoma likely of lung origin. Continue oncology recommendations. (4) Elevated blood pressure reading: Code(s): R03.0 - Elevated blood-pressure reading, without diagnosis of hypertension Status: Acute Assessment and Plan: Some blood pressures documented in 140s 150 systolic. May very well be related to pain since he has some recent readings within normal range. Stable, last 134/70 prior to discharge. Continue to monitor for now. (5) Urinary tract infection: Code(s): N39.0 - Urinary tract infection, site not specified Status: Acute Assessment and Plan: Urine culture grew Enterococcus. Due to amoxicillin allergy, he was discharged with oral nitrofurantoin, follow-up with urology and PCP. DS:
[2021-01-02] MEDS: oxyCODONE HCL (*CRX) 2.5 MG TAB IR PO (10:42)
[2021-01-02] MEDS: oxyCODONE/ACETAMINOPHEN (*CRX) 5-325 MG TABLET 1 TABLET PO (10:43)
[2021-01-02] MEDS: HEPARIN SOD FLUSH 500 UNITS/5 ML SYRINGE IV PUSH (11:19)
--- NOTE | 2021-01-07 07:17 | PC.NURSE ---
Faxed Pathology report to Dr. Lozada's office.
--- NOTE | 2021-01-13 09:20 | PC.NURSE ---
Blood cx are negative.
== END 2021-01-02 11:40 | disposition home or self-care (01) ==
LOC: ANHED 16:48 → ANH2MED 17:47
PROVIDERS: Emergency Medicine; Physician Assistant; Admitting Provider Hospitalist; Emergency Provider Emergency Medicine; PCP Nurse Practitioner Family; Visit Provider Internal Medicine
DX: R53.1 Weakness (principal); C34.12 Malignant neoplasm of upper lobe, left bronchus or lung; C77.3 Secondary and unspecified malignant neoplasm of axilla and upper limb lymph nodes; C79.01 Secondary malignant neoplasm of right kidney and renal pelvis; N39.0 Urinary tract infection, site not specified; R10.9 Unspecified abdominal pain; R03.0 Elevated blood-pressure reading, without diagnosis of hypertension; G89.3 Neoplasm related pain (acute) (chronic); R91.8 Other nonspecific abnormal finding of lung field; G62.0 Drug-induced polyneuropathy; T45.1X5S Adverse effect of antineoplastic and immunosuppressive drugs, sequela; J70.1 Chronic and other pulmonary manifestations due to radiation; N13.30 Unspecified hydronephrosis; K21.9 Gastro-esophageal reflux disease without esophagitis; K59.03 Drug induced constipation; T40.2X5S Adverse effect of other opioids, sequela; Z87.891 Personal history of nicotine dependence; Z79.51 Long term (current) use of inhaled steroids; Z79.891 Long term (current) use of opiate analgesic
CPT/HCPCS: 36415; 50200; 71046; 74018; 77012; 80048; 80053; 81001; 83690; 83735; 85025; 85610; 85730; 87040; 87077; 87086; 87088; 87186; 88305; 88329; 96361; 96365; 96366; 96375; 96376; 99285; A9270; G0378; J0696; J1170; J1642; J2405; J3370; J7120

== ENCOUNTER 2021-01-03 17:33 | Observation (INO) | payer OTHER, SELFPAY ==
--- NOTE | ~2021-01-03 | CT_ITS ---
EXAMINATION: CT abdomen pelvis wo con DATE: 01/03/2021 18:47 INDICATION: Right flank pain. TECHNIQUE: Computed tomography (CT) of the abdomen and pelvis was performed without intravenous contr ast. The dose-length product was 1067.75 mGy-cm. Automated exposure control and iterative reconstruct ion technique were employed. COMPARISON: CT dated 12/06/2020 FINDINGS: There are are multiple bilateral pulmonary nodules in the lower lungs, consistent with meta static disease. Cardiomegaly. Small left pleural effusion. There is atherosclerosis of the aorta. There is retroperit beaver lymphadenopathy, consistent with metastatic disease. There is a right internal ureteral stent w ith gas in the left renal collecting system. Right renal mass posterior aspect of the right kidney, s uspicious for malignancy. This was biopsied on 01/01/2021. Gallbladder is present. Nonobstructive bowel gas pattern. Sigmoid diverticulosis without evidence for diverticulitis. Focal thickening of the sigmoid colon which may represent adenocarcinoma or sequela of chronic diverticulitis. No lytic or blastic lesions are identified. IMPRESSION: 1. Ill-defined right renal mass, suspicious for primary renal cell carcinoma. 2: Abnormally thickened sigmoid colon, suspicious for adenocarcinoma versus sequela of chronic divert iculitis. 3: Multiple bilateral pulmonary nodules, lower lungs, consistent with metastatic disease. Small left pleural effusion, possibly malignant. 4: Retroperitoneal lymphadenopathy, likely metastatic disease. Reviewed, dictated and finalized at location A. IMPRESSION: 1. Ill-defined right renal mass, suspicious for primary renal cell carcinoma. 2: Abnormally thickened sigmoid colon, suspicious for adenocarcinoma versus seq uela of chronic diverticulitis. 3: Multiple bilateral pulmonary nodules, lower lungs, consistent with metastat ic disease. Small left pleural effusion, possibly malignant. 4: Retroperitoneal lymphadenopathy, likely metastatic disease.
--- NOTE | ~2021-01-03 | US_ITS ---
US abdomen limited INDICATION: Abdomen pain. Recent renal biopsy PROCEDURE: Realtime right upper abdominal ultrasound. COMPARISON: Ultrasound dated FINDINGS: The pancreas is not well visualized due to overlying bowel gas. Liver echotexture is incre ased, consistent with fatty infiltration. There is normal directional flow in the portal vein. The gallbladder is normal without stones, gallbladder wall thickening or pericholecystic fluid. Comm on bile duct measures 3 mm. No sonographic Young's sign. IMPRESSION: 1: Hepatic steatosis. Reviewed, dictated and finalized at location B. IMPRESSION: 1: Hepatic steatosis.
[2021-01-03 17:49] VITALS: BP 143/80; PULSE 100; RESP 22; TEMP 36.6; O2SAT 98
--- NOTE | 2021-01-03 18:13 | ED.ABDPAIN ---
HPI - Abdominal Pain General Chief Complaint: Abdominal Pain Stated Complaint: pain in abdomin Source: patient and family Mode of arrival: ambulatory Limitations: no limitations History of Present Illness HPI narrative: this is a 60-year-old gentleman that presents with intractable right flank pain and generalized weakness with decreased appetite. The patient was discharged from [facility] yesterday, was worked up for a right kidney mass with some right kidney biopsy and was seen by urology and had a stent placed right kidney and biopsy of the right kidney mass. The patient has a known history of non-small cell lung cancer that was diagnosed in July of 2019, and recently had supraclavicular lymph node biopsy on the left which shows metastatic squamous cell cancer likely from his primary lung cancer. The patient was discharged on January 02, 2021 from [facility] with pain medication, oxycodone, which the patient states is not relieving his pain and discomfort. Patient denies having any fever or chills no hematuria, he is passing urine well his abdomen is nontender but does have generalized weakness with pain localized to his right flank area where he had the biopsy performed under CT-guided. Patient has a port, patient was discharged with nitrofurantoin from [facility] currently is on pain control has tamsulosin for benign prostatic hypertrophy. The patient rates his pain pain at 10/10 and states that the oxycodone is of minimal help. The patient states that he would like to stay in the hospital for pain control and hydration. Patient recently had a kidney biopsy of the right kidney mass and according to Oncology depending on what the mass pathology reveals this will guide their other treatment plan. MD elicited complaint: flank pain Pertinent past history: other ( Right kidney mass) Pain Consistency: constant Location: R flank Severity: severe Pain scale (0-10): 10 Quality: aching Radiation: none Migration to: no migration Exacerbating factors: nothing Relieving factors: nothing Associated symptoms: denies other symptoms Related Data Home Medications Medication Instructions Recorded Confirmed cyanocobalamin (vitamin B-12) 2,500 mcg PO DAILY 07/31/19 01/03/21 pyridoxine (vitamin B6) 100 mg PO DAILY 07/31/19 01/03/21 lidocaine 1 applic TOPICAL PRN PRN 09/03/19 01/03/21 alprazolam 0.25 mg PO HS PRN 04/23/20 01/03/21 lansoprazole 15 mg PO DAILY 01/03/21 01/03/21 tamsulosin 0.4 mg PO HS 01/03/21 01/03/21 thiamine HCl (vitamin B1) 250 mg PO DAILY 01/03/21 01/03/21 Allergies Allergy/AdvReac Type Severity Reaction Status Date / Time amoxicillin [From Augmentin] Allergy Rash Verified 12/31/20 18:45 clavulanic acid Allergy Rash Verified 12/31/20 18:45 [From Augmentin] Review of Systems Review of Systems: All systems reviewed & are unremarkable except as noted in HPI and below PMFSH Past Medical History Medical History Gastroesophageal reflux disease Metastatic non-small cell lung cancer Diagnosed with poorly differentiated non-small cell lung cancer arising in the left upper lobe in July 2019, status post chemo radiation per Drs. Lozada and Ubaldo. Nephrolithiasis Peripheral neuropathy Secondary to chemotherapy. Right kidney mass PET scan on 11/24/2020 showed a masslike region in the posterior interpolar region of the right kidney representing either metastatic disease or primary renal cell carcinoma. Mild hydronephrosis was also noted in he is status post ureteral stent per Dr. Villareal at urology [place]. Squamous cell carcinoma Left supraclavicular lymph node biopsy on 12/09/2020 came back positive for metastatic squamous cell carcinoma likely from lung origin. Surgical History Surgical History History of ureter stent Right ureteral stent placed 12/[address] Villareal at [facility]
[2021-01-03] MEDS: SODIUM CHLORIDE 0.9% IV 1,000 ML 150 ML IV CONT (18:23)
[2021-01-03] MEDS: HYDROmorphone HCL INJ (*CRX) 2 MG/ML VIAL 1 MG IV PUSH ×3 (18:23→22:07)
[2021-01-03 18:27] LABS: Add Urine Microscopic? YES; Appearance Urine Sl Cloudy (Clear); Bilirubin Urine Negative (Negative); Blood Urine 3+ (Negative); Color Urine Yellow (Yellow); Glucose Urine UA Negative (Negative); Ketones Urine 1+ (Negative); Leukocyte Esterase Ur 2+ (Negative); Nitrate Urine Negative (Negative); Protein Urine 1+ (Negative); Specific Grav Ur 1.015 (1.010-1.020); pH Urine 7.5 (5.0-8.0)
[2021-01-03 18:30] LABS: Basophils Absolute Auto 0.02 K/mm3 (0.00-0.10); Basophils Percent Auto 0.2 % (0.0-1.0); Eosinophils Percent Auto 1.2 % (1.0-6.0); Hematocrit 36.7 % (40.0-54.0); Hemoglobin 11.9 g/dL (14.0-18.0); Immature Granulocyte Absolute 0.03 K/mm3 (0.00-0.00); Immature Granulocyte Percent A 0.4 % (0.0-0.0); Lymphocytes Absolute Auto 1.15 K/mm3 (1.10-4.50); Mean Corpuscular HGB Conc 32.4 g/dL (32.0-36.0); Mean Corpuscular Volume 95.6 fL (78.0-102.0); Mean Platelet Volume 8.6 fl (8.7-11.0); Monocytes Percent Auto 12.2 % (2.0-11.0); Neutrophils Absolute Auto 5.9 K/mm3 (1.7-7.2); Platelet Count Result 325 K/mm3 (150-420); Red Blood Count 3.84 M/mm3 (4.70-6.10); Red Cell Distribution Width 12.1 % (11.6-14.4); White Blood Count 8.2 K/mm3 (4.8-10.8)
[2021-01-03 18:35] LABS: RBC Urine 21-50 /hpf (0-2); Squamous Epithelial Cell Urine Rare /hpf (Few)
[2021-01-03 18:36] LABS: Bacteria Urine Trace /hpf
[2021-01-03 18:41] LABS: Alanine Aminotransferase 25 U/L (16-63); Albumin Level 3.5 g/dL (3.4-5.0); Alkaline Phosphatase 91 U/L (46-116); Anion Gap 9 mmol/L (8-16); Aspartate Amino Transferase 14 U/L (15-37); Bilirubin,Total 0.4 mg/dL (0.00-1.00); Blood Urea Nitrogen 11 mg/dL (7-18); Calcium 9.7 mg/dL (8.5-10.1); Carbon Dioxide 31 mmol/L (21-32); Chloride 94 mmol/L (98-108); Estimated CRCL calculation 68 ml/min; Estimated Glomerular Filt Rate > 60; Glucose 135 mg/dL (70-99); Osmolality Calculated 279 mOsm/kg (285-295); Potassium 3.5 mmol/L (3.5-5.1); Sodium 134 mmol/L (136-145); Total Protein 7.5 g/dL (6.4-8.2)
--- NOTE | 2021-01-03 19:00 | PC.NURSE ---
Report to Yennifer WANG.
--- NOTE | 2021-01-03 19:15 | PC.NURSE ---
Pt. resting, IVF infusing as per order, POC discussed c pt, for 23 hr. obs admit for pain control.
[2021-01-03 19:22] VITALS: BP 130/70; PULSE 87; RESP 18; TEMP 36.6; O2SAT 98
[2021-01-03 20:23] VITALS: BMI 26.7
[2021-01-03 20:30] VITALS: BP 149/72; PULSE 83; RESP 18; TEMP 37.1; O2SAT 95
--- NOTE | 2021-01-03 21:03 | PC.NURSE ---
IV Normal Saline order verified with doctor. Order to state to complete current bag of NS @ 150cc/hr, once current liter is done lower the rate to 100 cc/hr for next bags.
[2021-01-03] MEDS: TAMSULOSIN HCL 0.4 MG CAPSULE PO (21:32)
[2021-01-03] MEDS: NITROFURANTOIN MONOHYD MACROCR 100 MG CAP PO (21:32)
[2021-01-03] MEDS: PANTOPRAZOLE SOD SESQUIHYDRATE 20 MG TAB PO (21:32)
--- NOTE | 2021-01-03 23:15 | ADMGEN ---
This patient, Charli Rosas, was admitted to 2nd Floor Room 203-1. Patient/family oriented to hospital policies and general routines including ID bracelet, bed and alarms, visiting hours, pain management, procedures, bathroom and other care routines, personal items, smoking policy, room service/diet, and visiting hours. Patient/Family are encouraged to report perceived risks to care and to ask questions if they do not understand what they are told or what they should do. Iv fluids infusing per order, alarms activated
[2021-01-03 23:55] VITALS: BP 142/76; PULSE 84; RESP 20; TEMP 36.7; O2SAT 95
[2021-01-04] MEDS: HYDROmorphone HCL INJ (*CRX) 2 MG/ML VIAL 1 MG IV PUSH ×7 (00:08→17:59)
[2021-01-04] MEDS: ONDANSETRON INJ 4 MG/2 ML VIAL IV PUSH ×2 (00:14→12:02)
[2021-01-04] MEDS: SODIUM CHLORIDE 0.9% IV 1,000 ML 100 ML IV CONT ×3 (00:14→20:03)
[2021-01-04 06:51] LABS: Basophils Absolute Auto 0.01 K/mm3 (0.00-0.10); Basophils Percent Auto 0.1 % (0.0-1.0); Eosinophils Absolute Auto 0.09 K/mm3 (0.02-0.50); Eosinophils Percent Auto 1.1 % (1.0-6.0); Hematocrit 33.9 % (40.0-54.0); Hemoglobin 11.3 g/dL (14.0-18.0); Immature Granulocyte Absolute 0.03 K/mm3 (0.00-0.00); Immature Granulocyte Percent A 0.4 % (0.0-0.0); Mean Corpuscular HGB Conc 33.3 g/dL (32.0-36.0); Mean Platelet Volume 8.4 fl (8.7-11.0); Monocytes Percent Auto 12.7 % (2.0-11.0); Neutrophils Absolute Auto 5.6 K/mm3 (1.7-7.2); Neutrophils Percent Auto 71.7 % (50.0-70.0); Platelet Count Result 282 K/mm3 (150-420); Red Blood Count 3.53 M/mm3 (4.70-6.10); Red Cell Distribution Width 12.4 % (11.6-14.4); White Blood Count 7.9 K/mm3 (4.8-10.8)
[2021-01-04 07:02] LABS: Alanine Aminotransferase 21 U/L (16-63); Albumin Level 3.1 g/dL (3.4-5.0); Alkaline Phosphatase 86 U/L (46-116); Anion Gap 10 mmol/L (8-16); Aspartate Amino Transferase 10 U/L (15-37); Bilirubin,Total 0.4 mg/dL (0.00-1.00); Blood Urea Nitrogen 9 mg/dL (7-18); Calcium 9.1 mg/dL (8.5-10.1); Carbon Dioxide 29 mmol/L (21-32); Chloride 96 mmol/L (98-108); Estimated CRCL calculation 75 ml/min; Estimated Glomerular Filt Rate > 60; Glucose 115 mg/dL (70-99); Osmolality Calculated 279 mOsm/kg (285-295); Potassium 3.9 mmol/L (3.5-5.1); Sodium 135 mmol/L (136-145); Total Protein 6.7 g/dL (6.4-8.2)
[2021-01-04 08:00] VITALS: BP 146/85; PULSE 90; RESP 20; TEMP 36.9; O2SAT 94
--- NOTE | 2021-01-04 09:00 | PC.NURSE ---
Holding home medications until Care Conference.
[2021-01-04] MEDS: THIAMINE HCL 100 MG TABLET 200 MG PO (10:38)
[2021-01-04] MEDS: busPIRone HCL 5 MG TABLET PO ×2 (10:38→20:04)
[2021-01-04] MEDS: DULoxetine HCL 30 MG CAPSULE.DR 60 MG PO (10:39)
[2021-01-04] MEDS: MEGESTROL ACETATE (*CHEMO) 40 MG TABLET PO ×3 (10:39→20:04)
[2021-01-04] MEDS: NITROFURANTOIN MONOHYD MACROCR 100 MG CAP PO ×2 (10:39→20:04)
[2021-01-04] MEDS: SENNA/DOCUSATE SODIUM TABLET 1 TAB PO ×2 (10:40→17:50)
[2021-01-04] MEDS: CYANOCOBALAMIN 1,000 MCG TABLET 2000 MCG PO (10:40)
[2021-01-04] MEDS: fentaNYL (*CRX) 50 MCG PATCH TRANSDERM (10:40)
[2021-01-04] MEDS: polyethylene glycoL 3350 17 GM POWD.PACK PO (10:42)
[2021-01-04] MEDS: THIAMINE HCL 50 MG TABLET PO (10:42)
[2021-01-04] MEDS: METOCLOPRAMIDE HCL INJ 10 MG/2 ML VIAL 5 MG IV PUSH ×3 (12:36→23:15)
--- NOTE | 2021-01-04 12:51 | PM.IMHP ---
H&P: HPI History of Present Illness Date/Time: 01/04/21 12:51 this patient is a 60-year-old male that presented to our ED with uncontrolled pain. Patient has a past medical history of GERD neuropathy lung CA, metastatic disease recently diagnosed squamous cell carcinoma and awaiting results from her right kidney mass biopsy. Patient was admitted into the [facility] on 01/01/[address] Lozada office due to generalized weakness and pain. Patient was discharged from [facility] on 12/31/2020. During his admission to [facility] patient did have a biopsy of his kidney ,results pending. Patient believes that patient been discharged from the hospital at that time due to his uncontrolled pain. He currently complains of pain that is controlled now with Dilaudid 1 mg every 2 hours, he also notes that his appetite has decreased and he is experiencing nausea. Patient WBC 7.9 hemoglobin 11.3 hematocrit 33.9, platelets 282, sodium 135 potassium 3.9, BUN 9, creatinine 0.93, glucose 115 UA with protein, ketone, blood, leukocytes esterase, and bacteria. CT of the abdomen unchanged from previous indicate metastatic disease. Patient being admitted for UTI, generalized weakness and pain control. Time spent with patient 45 minutes Chief Complaint: Intractable pain Review of Systems Review of Systems: Narrative: A 14 organ system Review of Systems was performed and pertinent positives included in the HPI, otherwise remaining ROS is negative. [facility], [facility] Past Medical History Medical History Gastroesophageal reflux disease Metastatic non-small cell lung cancer Diagnosed with poorly differentiated non-small cell lung cancer arising in the left upper lobe in July 2019, status post chemo radiation per Drs. Lozada and Ubaldo. Nephrolithiasis Peripheral neuropathy Secondary to chemotherapy. Right kidney mass PET scan on 11/24/2020 showed a masslike region in the posterior interpolar region of the right kidney representing either metastatic disease or primary renal cell carcinoma. Mild hydronephrosis was also noted in he is status post ureteral stent per Dr. Villareal at urology [place]. Squamous cell carcinoma Left supraclavicular lymph node biopsy on 12/09/2020 came back positive for metastatic squamous cell carcinoma likely from lung origin. Surgical History Surgical History History of ureter stent Right ureteral stent placed 12/[address] Villareal at [facility] [place]. History of vasectomy Family History Family History Mother Family history of type 2 diabetes mellitus Family history of renal failure Father Family history of coronary artery disease Family history of type 2 diabetes mellitus Social History Social History Social History: Surrogate decision maker: Peggy Rosas, . Code status: Full code. Smoking packs per day: 1 Smoking cigarettes per day: 20.0 Years smoked: 35 Smoking pack-years: 35.00 Smoking status: Former smoker Smoking end date: 08/06/19 Alcohol intake: never Substance use: never Substance use type: does not use Additional living arrangements comments: The patient lives in [place] with his . He has 3 children. Additional occupation/education comments: Not currently working. 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 Gender identity (if verbalized by the patient): Male Spiritual care concerns: No Meds Home Medications and Allergies Home Medications Medication Instructions Recorded Confirmed Type cyanocobalamin (vitamin B-12) 2,500 mcg PO DAILY 07/31/19 01/03/21 History pyridoxine (vitamin B6) 100 mg PO DAILY 07/31/19 01/03/21 History albuterol sulfate 90 mcg/actuation 1 puff INHALATIO
--- NOTE | 2021-01-04 14:00 | PC.NURSE ---
States feeling better, passing gas; no stool.
[2021-01-04 15:40] VITALS: BP 118/65; PULSE 76; RESP 18; TEMP 36.5; O2SAT 93
[2021-01-04] MEDS: PANTOPRAZOLE SOD SESQUIHYDRATE 20 MG TAB PO (20:04)
[2021-01-04] MEDS: TAMSULOSIN HCL 0.4 MG CAPSULE PO (20:04)
[2021-01-04 23:25] VITALS: BP 122/66; PULSE 80; RESP 18; TEMP 36.8; O2SAT 94
[2021-01-05] MEDS: HYDROmorphone HCL INJ (*CRX) 2 MG/ML VIAL 1 MG IV PUSH ×4 (00:56→12:53)
--- NOTE | 2021-01-05 01:31 | PC.NURSE ---
pt resting in bed, no evidence of distress noted at this time, belongings and call light within reach.
[2021-01-05] MEDS: SODIUM CHLORIDE 0.9% IV 1,000 ML 100 ML IV CONT (05:59)
[2021-01-05] MEDS: METOCLOPRAMIDE HCL INJ 10 MG/2 ML VIAL 5 MG IV PUSH ×2 (06:00→12:53)
[2021-01-05 07:25] VITALS: BP 129/73; PULSE 86; RESP 16; TEMP 37; O2SAT 92
--- NOTE | 2021-01-05 07:25 | P.DS_ITS ---
DS: Admitting Diagnosis Admitting Diagnosis Admitting Diagnosis: Dehydration, weakness, intractable pain and urinary tract infection <Mikeliliana CheriseRIGO Hill - Last Filed: 01/05/21 08:35> DS: Discharge Diagnosis Discharge Diagnosis (1) Acute dehydration: Code(s): E86.0 - Dehydration <Meng Siu EDDIE DuranC - Last Filed: 01/05/21 08:35> Status: Acute <Meng LuongHa RogerRIGO - Last Filed: 01/05/21 08:35> Assessment and Plan: * Secondary to decreased appetite * Encourage fluid intake <Meng CheriseBERTHA Hill-C - Last Filed: 01/05/21 08:35> (2) Weakness: Code(s): R53.1 - Weakness <Mikeliliana CheriseRIGO Hill - Last Filed: 01/05/21 08:35> Status: Acute <Mikeliliana CheriseRIGO Hill - Last Filed: 01/05/21 08:35> Assessment and Plan: * secondary to dehydration infection and metastatic disease * Will hydrate patient and he received antibiotics for his infection <RIGO Gonzales - Last Filed: 01/05/21 08:35> (3) Right kidney mass: Code(s): N28.89 - Other specified disorders of kidney and ureter <RIGO Gonzales - Last Filed: 01/05/21 08:35> Status: Acute <Mikeliliana CheriseRIGO Hill - Last Filed: 01/05/21 08:35> Assessment and Plan: * Follow-up with oncologist <RIGO Gonzales - Last Filed: 01/05/21 08:35> (4) Squamous cell carcinoma: Status: Acute <RIGO Gonzales - Last Filed: 01/05/21 08:35> Assessment and Plan: * Follow-up with oncologist <RIGO Gonzales - Last Filed: 01/05/21 08:35> (5) Metastatic cancer: Code(s): C79.9 - Secondary malignant neoplasm of unspecified site <RIGO Gonzales - Last Filed: 01/05/21 08:35> Status: Acute <BERTHA Gonzales-C - Last Filed: 01/05/21 08:35> Assessment and Plan: * Diagnosed with NSCLC in Jul 2019 and has completed chemotherapy and radiation at that time. Port right chest. * Imaging indicated right renal mass and may represent metastatic disease vs. primary renal cell carcinoma. * Renal biopsy completed at [place] results pending * Recent left supraclavicular lymph node biopsy showed metastatic squamous cell carcinoma * Will need to follow-up with his oncologist and urologist * Repeat imaging indicate bilateral pulmonary nodules * Started Megace to increase appetite <BERTHA Gonzales-C - Last Filed: 01/05/21 08:35> (6) Urinary tract infection: Code(s): N39.0 - Urinary tract infection, site not specified <BERTHA Gonzales-C - Last Filed: 01/05/21 08:35> Status: Acute <RIGO Gonzales - Last Filed: 01/05/21 08:35> Assessment and Plan: * UA leukocyte esterase, bacteria and protein * S discharge Macobid * UA culture Enterococcus species sensitive to Macrobid <BERTHA Gonzales-C - Last Filed: 01/05/21 08:35> (7) Intractable pain: Code(s): R52 - Pain, unspecified <BERTHA Gonzales-C - Last Filed: 01/05/21 08:35> Status: Acute <RIGO Gonzales - Last Filed: 01/05/21 08:35> Assessment and Plan: * More than likely secondary to metastatic disease * Discharge on fentanyl patch 50 mcg. Plan to discharge patient with fentanyl patch and breakthrough [place] * Also started Cymbalta for pain <BERTHA Gonzales-Ana Maria - Last Filed: 01/05/21 08:35> (8) Abdominal pain: Qualifiers: Abdominal location: generalized Qualified Code(s): R10.84 - Generalized abdominal pain <RIGO Gonzales - Last Filed: 01/05/21 08:35>
--- NOTE | 2021-01-05 07:25 | PM.DS ---
DS: Admitting Diagnosis Admitting Diagnosis Admitting Diagnosis: Dehydration, weakness, intractable pain and urinary tract infection <RIGO Gonzales - Last Filed: 01/05/21 08:35> DS: Discharge Diagnosis Discharge Diagnosis (1) Acute dehydration: Code(s): E86.0 - Dehydration <RIGO Gonzales - Last Filed: 01/05/21 08:35> Status: Acute <RIGO Gonzales - Last Filed: 01/05/21 08:35> Assessment and Plan: Secondary to decreased appetite Encourage fluid intake <EDDIE GonzalesC - Last Filed: 01/05/21 08:35> (2) Weakness: Code(s): R53.1 - Weakness <RIGO Gonzales - Last Filed: 01/05/21 08:35> Status: Acute <RIGO Gonzales - Last Filed: 01/05/21 08:35> Assessment and Plan: secondary to dehydration infection and metastatic disease Will hydrate patient and he received antibiotics for his infection <RIGO Gonzales - Last Filed: 01/05/21 08:35> (3) Right kidney mass: Code(s): N28.89 - Other specified disorders of kidney and ureter <RIGO Gonzales - Last Filed: 01/05/21 08:35> Status: Acute <RIGO Gonzales - Last Filed: 01/05/21 08:35> Assessment and Plan: Follow-up with oncologist <RIGO Gonzales - Last Filed: 01/05/21 08:35> (4) Squamous cell carcinoma: Status: Acute <RIGO Gonzales - Last Filed: 01/05/21 08:35> Assessment and Plan: Follow-up with oncologist <RIGO Gonzales - Last Filed: 01/05/21 08:35> (5) Metastatic cancer: Code(s): C79.9 - Secondary malignant neoplasm of unspecified site <RIGO Gonzales - Last Filed: 01/05/21 08:35> Status: Acute <RIGO Gonzales - Last Filed: 01/05/21 08:35> Assessment and Plan: Diagnosed with NSCLC in Jul 2019 and has completed chemotherapy and radiation at that time. Port right chest. Imaging indicated right renal mass and may represent metastatic disease vs. primary renal cell carcinoma. Renal biopsy completed at [place] results pending Recent left supraclavicular lymph node biopsy showed metastatic squamous cell carcinoma Will need to follow-up with his oncologist and urologist Repeat imaging indicate bilateral pulmonary nodules Started Megace to increase appetite <EDDIE GonzalesC - Last Filed: 01/05/21 08:35> (6) Urinary tract infection: Code(s): N39.0 - Urinary tract infection, site not specified <RIGO Gonzales - Last Filed: 01/05/21 08:35> Status: Acute <RIGO Gonzales - Last Filed: 01/05/21 08:35> Assessment and Plan: UA leukocyte esterase, bacteria and protein S discharge Macobid UA culture Enterococcus species sensitive to Macrobid <RIGO Gonzales - Last Filed: 01/05/21 08:35> (7) Intractable pain: Code(s): R52 - Pain, unspecified <RIGO Gonzales - Last Filed: 01/05/21 08:35> Status: Acute <RIGO Gonzales - Last Filed: 01/05/21 08:35> Assessment and Plan: More than likely secondary to metastatic disease Discharge on fentanyl patch 50 mcg. Plan to discharge patient with fentanyl patch and breakthrough [place] Also started Cymbalta for pain <RIGO Gonzales - Last Filed: 01/05/21 08:35> (8) Abdominal pain: Qualifiers: Abdominal location: generalized Qualified Code(s): R10.84 - Generalized abdominal pain <RIGO Gonzales - Last Filed: 01/05/21 08:35> Code(s): R10.9 - Unspecified abdominal pain <RIGO Gonzales - Last Filed: 01/05/21 08:35> Status: Acute <BERTHA Gonzales-C - Last Filed: 01/05/21 08:35> Assessment and Plan: Etiology unclear CT of the abdomen pelvis indicate metastatic disease Ultrasound of the abdomen nothing significant Continue
[2021-01-05] MEDS: busPIRone HCL 5 MG TABLET PO (08:52)
[2021-01-05] MEDS: NITROFURANTOIN MONOHYD MACROCR 100 MG CAP PO (08:52)
[2021-01-05] MEDS: DULoxetine HCL 30 MG CAPSULE.DR 60 MG PO (08:52)
[2021-01-05] MEDS: SENNA/DOCUSATE SODIUM TABLET 1 TAB PO (08:52)
[2021-01-05] MEDS: THIAMINE HCL 100 MG TABLET 200 MG PO (08:52)
[2021-01-05] MEDS: CYANOCOBALAMIN 1,000 MCG TABLET 2000 MCG PO (08:53)
[2021-01-05] MEDS: MEGESTROL ACETATE (*CHEMO) 40 MG TABLET PO ×2 (08:53→12:53)
--- NOTE | 2021-01-05 13:15 | PC.NURSE ---
Discharge information reviewed with patient and spouse. Both verbalized understanding. Port deaccessed, bandaid applied. Patient taken off floor via wheelchair to private vehicle.
--- NOTE | 2021-01-06 11:04 | PC.NURSE ---
Pt states he received his discharge instructions and understood them. Pt states he's doing much better than he was.
== END 2021-01-05 13:15 | disposition home or self-care (01) ==
LOC: CHSED 19:06 → CHS2ND 19:30
PROVIDERS: Admitting Provider Emergency Medicine; Emergency Provider Emergency Medicine; PCP Nurse Practitioner Family; Visit Provider Emergency Medicine
DX: R10.9 Unspecified abdominal pain (principal); E86.0 Dehydration; N28.89 Other specified disorders of kidney and ureter; N39.0 Urinary tract infection, site not specified; C34.12 Malignant neoplasm of upper lobe, left bronchus or lung; C77.0 Secondary and unspecified malignant neoplasm of lymph nodes of head, face and neck; K21.9 Gastro-esophageal reflux disease without esophagitis; G62.0 Drug-induced polyneuropathy; T45.1X5A Adverse effect of antineoplastic and immunosuppressive drugs, initial encounter; Z98.890 Other specified postprocedural states; Z87.891 Personal history of nicotine dependence
CPT/HCPCS: 36415; 74176; 76705; 80053; 81001; 85025; 96361; 96374; 96375; 96376; 99285; A9270; G0378; J1170; J2405; J2765; J7030

== ENCOUNTER 2021-02-03 13:51 | Outpatient (CLI) | payer OTHER, SELFPAY | END 2021-02-03 13:52 | disposition home or self-care (01) | LOC: CHSIMG 13:53 | PROVIDERS: PCP Nurse Practitioner Family; Visit Provider Internal Medicine Cardiovascular Disease | DX: Z53.8 Procedure and treatment not carried out for other reasons (principal) | CPT/HCPCS: 99199 ==

== ENCOUNTER 2021-03-04 12:19 | Outpatient (NON) | payer OTHER, SELFPAY | END 2021-03-04 12:20 | disposition home or self-care (01) | LOC: CHSLAB 12:22 | PROVIDERS: Visit Provider Nurse Practitioner Family | DX: N39.0 Urinary tract infection, site not specified (principal) | CPT/HCPCS: 87086 ==

== ENCOUNTER 2021-04-03 08:15 | Outpatient (CLI) | payer OTHER, SELFPAY ==
--- NOTE | ~2021-04-03 | CT_ITS ---
EXAMINATION: CT chest abdomen pelvis w con DATE: 04/03/2021 09:20 INDICATION: Non-small cell left lung cancer TECHNIQUE: Computed tomography (CT) of the chest, abdomen, and pelvis was performed . With 100 cc Omn ipaque 350 intravenous contrast. Automated exposure control and iterative reconstruction technique we re employed. Exam dose: 423.06 mGy-cm total exam DLP. COMPARISON: 01/03/2021 CT abdomen pelvis 11/24/[address] scan 3 [address] chest FINDINGS: CHEST CT: There are numerous bilateral pulmonary metastatic deposits, increased in number and size since . There is increased left suprahilar soft tissue mass density with air bronchograms which may represent increased malignancy and/or postoperative radiation change. New mild left pleural effusion since 11/13/2020. Areas of bilateral pleural soft tissue thickening may indicate left and right pleural metastasis. Stable 2 cm aortopulmonary window mass, likely metastatic adenopathy. Normal heart size. No pericardial effusion. No right pleural effusion. No thoracic aortic aneurysm or dissection. ABDOMEN/PELVIS CT: Diminished hepatic steatosis since 11/2020. Scattered several millimeter hypoattenuating lesions of the liver may represent cysts. Small hepatic metastasis is not excluded. Normal splenic size. No pancreatic mass lesion, calcification or ductal dilatation. The gallbladder i s present. No bile duct dilatation. Normal morphology of the adrenal glands. Approximately 4.5 cm mid right renal mass lesion is suspicious for hypernephroma, stable since 021. There is suggestion of some tumor extension along the left renal vein, without apparent inferior vena cava extension. No left renal mass lesion. No urinary tract calculus or hydroureteronephrosis. The urinary bladder is unremarkable. Prostate enlargement. Abdominal aortic calcification. No abdominal aortic aneurysm. Interval mild periaortic and aortocaval lymphadenopathy since 12/04/2020. There is an approximately 6 cm length of proximal sigmoid colon with prominent circumferential soft t issue thickening of the wall. There are multiple diverticula. Differential diagnosis includes sigmoid diverticulitis and less likely sigmoid colon carcinoma. There is a prominent of fecal material in the colon and rectum. No bowel obstruction. No suspicious osteolytic or osteoblastic lesions are noted. IMPRESSION: Increased bilateral pulmonary metastatic disease Increased left suprahilar soft tissue mass, likely indicating progression of primary left lung malign jaya New mild left pleural effusion Stable 2 cm probable metastatic aortopulmonary window mass Scattered small nonspecific hypoattenuating liver lesions, possibly cysts. Small hepatic metastasis i s not excluded 4.5 cm relatively stable right renal mass suspicious for hypernephroma with probable right renal vein invasion Interval mild periaortic and aortocaval lymphadenopathy since 12/04/2020 Proximal sigmoid colon circumferential soft tissue thickening; diffusion diagnosis includes diverticu litis, sigmoid colon carcinoma Diverticulosis of the colon Prostate enlargement Reviewed, dictated and finalized at [facility]. Reviewed, dictated and finalized at location [facility]. IMPRESSION: Increased bilateral pulmonary metastatic disease Increased left suprahilar soft tissue mass, likely indicating progression of pr imary left lung malignancy New mild left pleural effusion Stable 2 cm probable metastatic aortopulmonary window mass Scattered small nonspecific hypoattenuating liver lesions, possibly cysts. Smal l hepatic metastasis is not excluded 4.5 cm relatively stable right renal mass suspicious for hypernephroma wit
== END 2021-04-03 08:16 | disposition home or self-care (01) ==
PROVIDERS: PCP Nurse Practitioner Family; Visit Provider Internal Medicine Hematology & Oncology
DX: C34.92 Malignant neoplasm of unspecified part of left bronchus or lung (principal); J90 Pleural effusion, not elsewhere classified; N28.89 Other specified disorders of kidney and ureter; K57.30 Diverticulosis of large intestine without perforation or abscess without bleeding; N40.0 Benign prostatic hyperplasia without lower urinary tract symptoms
CPT/HCPCS: 71260; 74177; Q9967

== ENCOUNTER 2021-05-25 09:21 | Outpatient (CLI) | payer OTHER, SELFPAY ==
--- NOTE | ~2021-05-25 | CT_ITS ---
EXAMINATION: CT chest abdomen pelvis w con DATE: 05/25/2021 09:57 INDICATION: Non-small cell cancer of the left lung TECHNIQUE: Transaxial computed tomographic images of the chest, abdomen, and pelvis were obtained aft er the administration of 100 cc of Omnipaque 350 intravenous contrast. The dose-length product (DLP) was 388.12 mGy-cm. Automated exposure control and iterative reconstruction technique were employed. COMPARISON: 04/03/2021 FINDINGS: CHEST CT: An infiltrating left hilar mass is not significantly changed. Also seen are multiple stable bilateral pulmonary nodules. A moderate-sized loculated left pleural effusion has slightly increased in size. There is a small right pleural effusion. There is no pneumothorax. A right internal jugular Port-A-Ca th ends with its tip in the proximal right atrium. The heart size is normal. There is a stable mass i n the aorticopulmonary window. There is mild thoracic spondylosis. ABDOMEN/PELVIS CT: The liver, spleen, pancreas, gallbladder, and adrenal glands are normal. The left kidney is unremarka ble. There is a stable mass of the right kidney, previously demonstrated to reflect metastatic diseas e. There is calcified atherosclerosis of the aorta and many of the other arteries. Retroperitoneal ly mphadenopathy is stable. There is circumferential wall thickening of the sigmoid colon with interval worsening. IMPRESSION: 1. Stable, infiltrating left hilar mass, consistent with malignancy. 2. Multiple bilateral stable pulmonary nodules, consistent with metastatic disease. 3. Pleural effusions with interval increase on the left. 4. Mediastinal and retroperitoneal lymphadenopathy, consistent with metastatic disease. 5. Stable biopsy-proven metastasis to the right kidney. 6. Wall thickening of the sigmoid colon which could reflect malignancy, benign versus malignant. Cons ider endoscopy if desired and not recently performed. Reviewed, dictated and finalized at location A. IMPRESSION: 1. Stable, infiltrating left hilar mass, consistent with malignancy. 2. Multiple bilateral stable pulmonary nodules, consistent with metastatic dise ase. 3. Pleural effusions with interval increase on the left. 4. Mediastinal and retroperitoneal lymphadenopathy, consistent with metastatic disease. 5. Stable biopsy-proven metastasis to the right kidney. 6. Wall thickening of the sigmoid colon which could reflect malignancy, benign versus malignant. Consider endoscopy if desired and not recently performed.
== END 2021-05-25 09:22 | disposition home or self-care (01) ==
LOC: ANHIMG 09:26
PROVIDERS: PCP Nurse Practitioner Family; Visit Provider Internal Medicine Hematology & Oncology
DX: C34.92 Malignant neoplasm of unspecified part of left bronchus or lung (principal); J90 Pleural effusion, not elsewhere classified; R59.0 Localized enlarged lymph nodes; C79.01 Secondary malignant neoplasm of right kidney and renal pelvis; R93.3 Abnormal findings on diagnostic imaging of other parts of digestive tract
CPT/HCPCS: 71260; 74177; Q9967

== ENCOUNTER 2021-05-29 08:01 | Outpatient (RCR) | payer OTHER, SELFPAY ==
--- NOTE | 2021-05-29 09:23 | PTOPEVAL ---
Thank you for referring Charli Rosas to [facility].? The patient is scheduled to be seen for therapy? ____x/week for ___ weeks. Please review, sign, date and return this plan of care ONUR. I agree with and certify that the following plan of care is medically necessary. Referring Physician Date Admitting Provider: Attending Provider: Brenna Gillespie NP Referring Provider: *PT Outpatient Evaluation Start: 05/29/21 08:01 Freq: Status: Active Protocol: Document 05/29/21 08:[address] [facility] (Rec: 05/29/21 09:[address] [facility] [id number]) Therapy Assessment Status Assessment Status Assessment Status Evaluation Outpatient Past Medical History Neurological History Hx Neurological Disorders No Significant History Respiratory History Hx Respiratory Disorders No Significant History Gastrointestinal History Hx Gastroesophageal Reflux Disease Yes Genitourinary History Hx Kidney Stones Yes: RECENT STENT Musculoskeletal History Hx Arthritis Yes: SHOULDER Hematological History Hx Hematological Disorders No Significant History Endocrine History Hx Endocrine Disorders No Significant History HEENT History Hx HEENT Disorders No Significant History Integumentary History Hx Skin Disorders No Significant History Reproductive History Hx Reproductive Disorders No Significant History Psychosocial History Hx Psychiatric Disorders No Significant History Pain History Has Past Pain Affected Your Daily Life Yes History of Long-Term Prescription Pain Yes Medication Use (Opiates) Effective Methods of Pain Control PERCOCET Anesthesia History Hx Anesthesia Reactions No Significant History Other History Hx Cancer Yes: Lung CA Hx Chemotherapy Yes Hx Radiation Therapy Yes Evaluation Information Problem Diagnosis generalized weakness Onset 05/25/21 Subjective Information patiene reports he is coming Query Text:As Reported By Patient/ to skilled PT for generalkized Family weakness secondary to cancer tretment. he reports he has been battling cancer for 2 years and is currently continuing treatment for cancer. he reports he is not sure of the game plan going forward past tuesday for treatment. he reports he is struggling to get up from chair. he reports he is unable to walk increased distance without being sort of breath
--- NOTE | 2021-06-23 10:27 | PCPTNOTE ---
06/23/21 - patient has been DC'd from skilled PT services as patient has
== END 2021-05-29 09:00 | disposition home or self-care (01) ==
LOC: CHSPT 08:01
PROVIDERS: PCP Nurse Practitioner Family; Visit Provider Nurse Practitioner Family
DX: R53.1 Weakness (principal); M79.603 Pain in arm, unspecified; M79.606 Pain in leg, unspecified
CPT/HCPCS: 97110; 97162

== ENCOUNTER 2021-05-29 08:48 | Emergency (ER) | payer OTHER, SELFPAY ==
[2021-05-29] VITALS (9 sets, daily range): BP systolic 86–120; BP diastolic 66–75; PULSE 90–92; RESP 20; TEMP 36.8; O2SAT 88–100
--- NOTE | ~2021-05-29 | XR_ITS ---
EXAMINATION: XR chest 1V portable EXAM DATE: 05/29/2021 09:52 INDICATION: hypotension, hx lung ca TECHNIQUE: Portable AP frontal chest x-ray was obtained. Comparison is made to prior examination from 12/31/2020. FINDINGS: Increase in quantity of opacities throughout the lungs. (Prior study had left upper lobe pr edominant opacity consistent with infiltrating malignancy). Could be progression of carcinomatosis, p ulmonary edema or infection. Correlate with recent CT chest from 05/25. Small to moderate left, small right pleural effusions. Mild cardiomegaly. Right-sided Chemo-Port. No pneumothorax. There are bony d egenerative changes. IMPRESSION: 1. Left suprahilar infiltrating malignancy. 2. Progression of diffuse airspace disease, could be carcinomatosis, edema and/or pneumonia. Clinica l correlation. 3. Cardiomegaly. Pleural effusions. Reviewed, dictated and finalized at location B. IMPRESSION: 1. Left suprahilar infiltrating malignancy. 2. Progression of diffuse airspace disease, could be carcinomatosis, edema and /or pneumonia. Clinical correlation. 3. Cardiomegaly. Pleural effusions.
--- NOTE | 2021-05-29 08:54 | ECG_ITS ---
Measurements Intervals [place] Rate: 84 P: 45 [place]: 125 QRS: -18 QRSD: 104 T: 56 QT: 362 QTc: 429 Interpretive Statements SINUS RHYTHM WITH SINUS ARRHYTHMIA EARLY PRECORDIAL R/S TRANSITION VOLTAGE CRITERIA FOR LVH INFERIOR INFARCT, AGE INDETERMINATE BASELINE ARTIFACT- II, III, AVL, AVF, V4-V5 ABNORMAL ECG Electronically Signed On 05-29-2021 12:21:31 CDT by Red Reis D.O.
--- NOTE | 2021-05-29 09:03 | ED.GENADULT ---
HPI - General Adult General Chief complaint: Weakness Stated complaint: LOW BLOOD PRESSURE Source: patient Mode of arrival: ambulatory Limitations: no limitations History of Present Illness HPI narrative: Charli is a 60M with a PMH of metastatic non-small cell lung cancer, anxiety/depression, neuropathy, weakness, and GERD that presented to the ED with low blood pressure. Sine his last chemo treatment 3 months ago he has felt weak and had little energy and poor PO intake. He went to PT this morning and he was found to have low BP there then was referred to the ED. He is SOB and has a cough but these are at his baseline. He denies CP, fevers, chills, N/V, diarrhea and syncope. Related Data Home Medications Medication Instructions Recorded Confirmed lansoprazole 15 mg PO DAILY 01/03/21 05/11/21 ondansetron 8 mg PO Q8H PRN 02/16/21 05/11/21 Allergies Allergy/AdvReac Type Severity Reaction Status Date / Time amoxicillin [From Augmentin] Allergy Rash Verified 05/11/21 09:49 clavulanic acid Allergy Rash Verified 05/11/21 09:49 [From Augmentin] Review of Systems Constitutional: Constitutional: Reports fatigue and Reports weakness Eyes: Eyes: Reports no additional eye complaints ENT: Reports system reviewed and no additional complaints, except as documented Cardiovascular: Cardiovascular: Reports as per HPI Respiratory: Respiratory: Reports as per HPI Gastrointestinal: Gastrointestinal: Reports no additional gastrointestinal complaints Genitourinary: Genitourinary: Reports no additional male genitourinary complaints Musculoskeletal: Musculoskeletal: Reports no additional musculoskeletal complaints Integumentary/Breasts: Skin/Breast: Reports system reviewed and no additional complaints, except as docu Neurologic: Reports system reviewed and no additional complaints, except as documented Psychiatric: Psychiatric: Reports no additional psychiatric complaints Endocrine: Endocrine: Reports no additional endocrine complaints Hematologic/Lymphatic: Hematologic/Lymphatic: Reports no additional hematologic/lymphatic complaints Allergic/Immunologic: Allergic/Immunologic: Reports no additional allergic/immunologic complaints [facility] Past Medical History Medical History Gastroesophageal reflux disease Metastatic non-small cell lung cancer Diagnosed with poorly differentiated non-small cell lung cancer arising in the left upper lobe in July 2019, status post chemo radiation per Drs. Lozada and Ubaldo. Nephrolithiasis Peripheral neuropathy Secondary to chemotherapy. Right kidney mass PET scan on 11/24/2020 showed a masslike region in the posterior interpolar region of the right kidney representing either metastatic disease or primary renal cell carcinoma. Mild hydronephrosis was also noted in he is status post ureteral stent per Dr. Villareal at [facility]. Squamous cell carcinoma Left supraclavicular lymph node biopsy on 12/09/2020 came back positive for metastatic squamous cell carcinoma likely from lung origin. Surgical History Surgical History History of ureter stent Right ureteral stent placed 12/[address] Villareal at [facility]. History of vasectomy Family History Family History Mother Family history of type 2 diabetes mellitus Family history of renal failure Father Family history of coronary artery disease Family history of type 2 diabetes mellitus Social History Social History Social History: Surrogate decision maker: Peggy Rosas, . Code status: Full code. Smoking packs per day: 1 Smoking cigarettes per day: 20.0 Years smoked: 35 Smoking pack-years: 35.00 Smoking status: Former smoker Smoking end date: 08/06/19 Alcohol intake: never
[2021-05-29 09:11] LABS: Hematocrit 35.7 % (40.0-54.0); Mean Corpuscular HGB Conc 30.8 g/dL (32.0-36.0); Mean Corpuscular Hemoglobin 30.9 pg (27.0-31.0); Mean Corpuscular Volume 100.3 fL (78.0-102.0); Platelet Count Result 332 K/mm3 (150-420); Red Blood Count 3.56 M/mm3 (4.70-6.10); Red Cell Distribution Width 16.9 % (11.6-14.4); White Blood Count 9.6 K/mm3 (4.8-10.8)
[2021-05-29] MEDS: SODIUM CHLORIDE 0.9% IV 1,000 ML 999 ML IV CONT (09:15)
[2021-05-29 09:30] LABS: SARS-CoV-2 Ag Negative (Negative)
[2021-05-29 09:32] LABS: Band Neutrophils Percent 0 % (0-6); Lymphocytes Absolute Manual 1.05 K/mm3 (1.1-4.5); Lymphocytes Percent Manual 11 % (18-44); Monocytes Absolute Manual 1.34 K/mm3 (0.1-0.90); Monocytes Percent Manual 14 % (3-9); Neutrophils Percent Manual 75 % (46-73); Total Cells Counted 100
[2021-05-29 09:33] LABS: Platelet Estimate Adequate (Adequate)
[2021-05-29 09:36] LABS: Lactic Acid Reflex 1.1 mmol/L (0.4-2.0)
[2021-05-29 09:45] LABS: Alanine Aminotransferase 16 U/L (16-63); Albumin Level 1.9 g/dL (3.4-5.0); Alkaline Phosphatase 108 U/L (46-116); Anion Gap 5 mmol/L (8-16); Aspartate Amino Transferase 15 U/L (15-37); Bilirubin,Total 0.2 mg/dL (0.00-1.00); Blood Urea Nitrogen 12 mg/dL (7-18); Calcium 8.5 mg/dL (8.5-10.1); Carbon Dioxide 34 mmol/L (21-32); Chloride 102 mmol/L (98-108); Estimated CRCL calculation 83 ml/min; Estimated Glomerular Filt Rate > 60; Glucose 101 mg/dL (70-99); NT Pro B Type Natriuretic Pept 109 pg/mL (0-125); Osmolality Calculated 291 mOsm/kg (285-295); Sodium 141 mmol/L (136-145); Total Protein 5.5 g/dL (6.4-8.2); Troponin I 4.4 ng/L (0.00-60.4)
[2021-05-29] MEDS: HEPARIN SODIUM LOCK FLUSH 500 UNITS/5 ML VIAL IV PUSH (10:38)
== END 2021-05-29 10:50 | disposition home or self-care (01) ==
PROVIDERS: Emergency Provider Family Medicine; PCP Nurse Practitioner Family
DX: E86.0 Dehydration (principal); D64.9 Anemia, unspecified; E03.9 Hypothyroidism, unspecified; Z20.822 Contact with and (suspected) exposure to COVID-19; R06.02 Shortness of breath
CPT/HCPCS: 36415; 71045; 80053; 83605; 83880; 84443; 84484; 85025; 87426; 93005; 96361; 96374; 99283; 99284; C9803; J1642; J7030

== ENCOUNTER 2021-06-02 11:56 | Outpatient (CLI) | payer OTHER, SELFPAY ==
[2021-06-02 12:02] VITALS: BMI 19.9
[2021-06-02 12:18] VITALS: BP 92/51; PULSE 88; RESP 14; TEMP 36.6; O2SAT 90
[2021-06-02] MEDS: SODIUM CHLORIDE 0.9% IV 1,000 ML 500 ML IVPB (12:25)
--- NOTE | 2021-06-02 13:44 | PC.NURSE ---
Pt sleeping per bed. Appears comfortable. IV infusing as ordered.
[2021-06-02 14:10] VITALS: BP 106/58
[2021-06-02] MEDS: HEPARIN SODIUM LOCK FLUSH 500 UNITS/5 ML SYRINGE (14:15)
--- NOTE | 2021-06-02 14:20 | PC.NURSE ---
IV fluids infused without difficulty. Pt tolerated well. Port deaccessed per protocol. BP 106/58, called to Brenna WRIGHT at [facility]. Pt discharged to home per wc with spouse.
== END 2021-06-02 11:57 | disposition home or self-care (01) ==
LOC: CHSTREATRM 11:57
PROVIDERS: PCP Nurse Practitioner Family; Visit Provider Nurse Practitioner Family
DX: E86.0 Dehydration (principal)
CPT/HCPCS: 96360; 96361; J7030

== ENCOUNTER 2021-06-06 06:46 | Outpatient (CLI) | payer OTHER, SELFPAY ==
--- NOTE | 2021-06-06 07:00 | PC.NURSE ---
Here for OP IVF's
[2021-06-06] MEDS: SODIUM CHLORIDE 0.9% IV 1,000 ML 999 ML IV CONT (07:30)
--- NOTE | 2021-06-06 08:38 | PC.NURSE ---
Assisted to , discharged with
== END 2021-06-06 06:47 | disposition home or self-care (01) ==
LOC: CHSLAB 06:48 → CHSTREATRM 06:51
PROVIDERS: PCP Nurse Practitioner Family; Visit Provider Nurse Practitioner Family
DX: E86.0 Dehydration (principal)
CPT/HCPCS: 96360; J7030

== ENCOUNTER 2021-06-08 11:19 | Inpatient (IN) | payer OTHER, SELFPAY ==
[2021-06-08] VITALS (62 sets, daily range): BP systolic 72–146; BP diastolic 47–103; PULSE 86–104; RESP 11–32; TEMP 36.1–36.5; O2SAT 84–100; BMI 22.3
--- NOTE | ~2021-06-08 | CT_ITS ---
EXAMINATION: CTA chest PE protocol EXAM DATE: 06/08/2021 15:03 INDICATION: Pulmonary embolism. TECHNIQUE: Spiral CTA of the chest (pulmonary arteries) was performed with 100 cc Omnipaque 350 intr avenous contrast injection. Images were acquired during the pulmonary arterial phase. Coronal maxi mum intensity projection 3D-reconstructions were created by the technologist on dedicated workstation . Axial, coronal and sagittal reformatted images were reviewed. The dose-length product (DLP) for t his examination was 232.01 mGy-cm. The exposure was tailored according to patient size (auto mA exp osure control), and iterative reconstruction (ASIR) was used as additional dose reduction technique. Comparison is made to prior examination from 05/25/2021. FINDINGS: Right-sided Chemo-Port. There is mild cardiomegaly. The main, central pulmonary arteries ar e dilated which can indicate elevated pulmonary arterial pressure, pulmonary arterial hypertension. N o intraluminal filling defects within the pulmonary arteries identified. Again there is extensive left suprahilar infiltrative malignancy consistent with lymphangitic carcino matosis extending into the hilum. Again there are scattered pulmonary metastatic ill-defined nodules. There is interval development of superimposed acute pneumonia or edema. Mild increase in size of the small to left greater than right effusions with loculations. There is pathological prevascular lymph node unchanged, measuring 2 x 3 cm. There are no osteoblastic or osteolytic lesions identified. IMPRESSION: 1. Development of moderate amount of acute edema or pneumonia superimposed on chronic infiltrative l eft hilar mass and lung metastatic disease. 2. Small to moderate bilateral pleural effusions with loculations, mild increase in size. 3. Cardiomegaly. Dilated pulmonary arteries. 4. Mediastinal adenopathy. 5. No pulmonary emboli identified. Reviewed, dictated and finalized at location A. IMPRESSION: 1. Development of moderate amount of acute edema or pneumonia superimposed on chronic infiltrative left hilar mass and lung metastatic disease. 2. Small to moderate bilateral pleural effusions with loculations, mild increa se in size. 3. Cardiomegaly. Dilated pulmonary arteries. 4. Mediastinal adenopathy. 5. No pulmonary emboli identified.
--- NOTE | ~2021-06-08 | XR_ITS ---
EXAMINATION: XR chest 2V EXAM DATE: 06/08/2021 11:59 INDICATION: Weakness and shortness of breath. Small cell lung cancer. TECHNIQUE: Frontal and lateral projections of the chest obtained and reviewed. Comparison is made to prior examination from 05/29/2021. FINDINGS: Left upper lobe infiltrative malignancy. Extensive multifocal airspace disease, partly of w hich are numerous metastatic lesions. Could also be lymphangitic carcinomatosis or possibly superimpo sed pneumonia or edema. Can't appreciate any significant interval change compared to prior study. The re is left hemidiaphragm elevation and also a pleural effusion. No pneumothorax. The cardiac silhouet te is enlarged. IMPRESSION: 1. Airspace disease unchanged, malignancy and metastatic disease. Superimposed pneumonia or edema no t excludable. 2. Small left pleural effusion with loculations. 3. Cardiomegaly, congestion. Reviewed, dictated and finalized at location A. IMPRESSION: 1. Airspace disease unchanged, malignancy and metastatic disease. Superimposed pneumonia or edema not excludable. 2. Small left pleural effusion with loculations. 3. Cardiomegaly, congestion.
--- NOTE | 2021-06-08 11:30 | ECG_ITS ---
Measurements Intervals [place] Rate: 100 P: 83 [place]: 117 QRS: 1 QRSD: 84 T: -16 QT: 381 QTc: 491 Interpretive Statements SINUS TACHYCARDIA WITH SHORT IA INTERVAL LOW QRS VOLTAGE IN PRECORDIAL LEADS BORDERLINE R WAVE PROGRESSION, ANTERIOR LEADS BORDERLINE T WAVE ABNORMALITY- ANT/INF LEADS BASELINE ARTIFACT- I, II, III, AVR, AVL, AVF, V1-V5 ABNORMAL ECG Electronically Signed On 06-08-2021 11:44:12 CDT by Red Reis D.O.
[2021-06-08] MEDS: SODIUM CHLORIDE 0.9% IV 1,000 ML 999 ML (11:53)
[2021-06-08 12:02] LABS: Basophils Percent Auto 0.3 % (0.2-1.2); Hematocrit 36.9 % (42.0-52.0); Hemoglobin 11.2 g/dL (14.0-18.0); Immature Granulocyte Absolute 0.08 K/mm3 (0.00-0.031); Lymphocytes Absolute Auto 0.68 K/mm3 (0.9-3.2); Lymphocytes Percent Auto 8.5 % (18.3-44.2); Mean Corpuscular HGB Conc 30.4 g/dl (32-36); Mean Corpuscular Hemoglobin 31.3 pg (26-34); Mean Corpuscular Volume 103.1 fl (80-100); Mean Platelet Volume 9.3 fl (7.4-10.4); Monocytes Absolute Auto 1.3 K/mm3 (0.1-0.6); Monocytes Percent Auto 15.8 % (2.6-8.5); Neutrophils Percent Auto 74.4 % (45.5-73.1); Nucleated Red Blood Cells Absolute Auto 0.2 K/mm3 (0.0-0.012); Nucleated Red Blood Cells Perc 2.8 % (0.0-0.2); Platelet Count Result 346 k/mm3 (150-375); Red Blood Count 3.58 M/mm3 (4.6-6.20); Red Cell Distribution Width 19.2 % (11.5-14.5)
[2021-06-08 12:13] LABS: Alanine Aminotransferase 12 U/L (4-50); Albumin Level 2.7 g/dL (3.5-5.1); Alkaline Phosphatase 126 U/L (38-126); Anion Gap 5 mmol/L (8-16); Aspartate Amino Transferase 21 U/L (17-59); Bilirubin,Total 0.3 mg/dL (0.2-1.3); Blood Urea Nitrogen 17 mg/dL (9-20); Calcium 8.5 mg/dL (8.4-10.2); Carbon Dioxide 33 mmol/L (22-30); Chloride 99 mmol/L (98-107); Estimated CRCL calculation 76 ml/min; Estimated Glomerular Filt Rate > 60; Glucose 112 mg/dL (65-110); Sodium 137 mmol/L (137-145)
[2021-06-08 13:29] LABS: Lactic Acid Reflex 0.8 mmol/L (0.7-2.1)
[2021-06-08 13:30] LABS: Add Urine Microscopic? YES; Appearance Urine Clear (Clear); Bilirubin Urine 1+ (Negative); Blood Urine Negative (Negative); Calcium Oxalate Crystals Urine Present /hpf; Color Urine Amber (Yellow); Glucose Urine UA Negative (Negative); Ketones Urine Trace mg/dL (Negative); Leukocyte Esterase Ur Negative LEU/UL (Negative); Mucus Urine Few /lpf; Nitrate Urine Negative (Negative); Protein Urine 2+ mg/dL (Negative); Specific Grav Ur 1.027 (1.001-1.035); WBC Urine 0-3 /hpf
[2021-06-08 13:32] LABS: CRP 4.5 mg/dL (<1.0)
[2021-06-08 13:55] LABS: Prothrombin Time 12.6 Seconds (11.1-14.7)
[2021-06-08 13:56] LABS: Partial Thromboplastin Time 29.2 SECONDS (22.3-36.8)
[2021-06-08] MEDS: SODIUM CHLORIDE 0.9% IV 1,000 ML 999 ML IV CONT (14:05)
--- NOTE | 2021-06-08 14:25 | ED.GENADULT ---
HPI - General Adult General Chief complaint: Weakness Stated complaint: weakness Time Seen by Provider: 06/08/21 12:26 Source: patient and family Mode of arrival: EMS Limitations: no limitations History of Present Illness HPI narrative: Patient 60 years old white male came to the emergency room with his complaining of generalized weakness and gradual increase shortness of breath and coughing over the last few days. Patient came from cancer center after getting chemo therapy today and was found to have saturation at 86% on room air and low blood pressure. Patient had history of non-small cell carcinoma with metastasis. Patient is DNR. Dr. Lozada told me that hospice situation was discussed with the patient and his last week and the way he looks today increases the option of hospice. Also telling me that patient does not eat or drink for weeks and he is generally weak and would not be able to tolerate chemotherapy Related Data Home Medications Medication Instructions Recorded Confirmed lansoprazole 15 mg PO DAILY 01/03/21 06/02/21 ondansetron 8 mg PO Q8H PRN 02/16/21 06/02/21 Allergies Allergy/AdvReac Type Severity Reaction Status Date / Time amoxicillin [From Augmentin] Allergy Rash Verified 06/02/21 11:12 clavulanic acid Allergy Rash Verified 06/02/21 11:12 [From Augmentin] Review of Systems Review of Systems: CONSTITUTIONAL: Denies fever, chills, or sweats. EYES: Denies visual changes, redness, or discharge. ENT: Denies rhinorrhea, congestion, sore throat, or otalgia. CARDIOVASCULAR: Denies chest pain, palpitations, or edema. RESPIRATORY: Denies cough or dyspnea. GASTROINTESTINAL: Denies abdominal pain, nausea, vomiting, or diarrhea. GENITOURINARY: Denies dysuria or hematuria. SKIN: Denies rash or itching. MUSCULOSKELETAL: Denies back pain, joint pain, or myalgia. NEUROLOGIC: Denies headache, numbness, or weakness. PSYCHIATRIC: Denies anxiety or depression. [facility] Past Medical History Medical History (Updated 06/08/21 @ 17:51 by Aleida Barreto NP) Gastroesophageal reflux disease Metastatic non-small cell lung cancer Diagnosed with poorly differentiated non-small cell lung cancer arising in the left upper lobe in July 2019, status post chemo radiation per Drs. Lozada and Ubaldo. Nephrolithiasis Peripheral neuropathy Secondary to chemotherapy. Restless leg syndrome Right kidney mass PET scan on 11/24/2020 showed a masslike region in the posterior interpolar region of the right kidney representing either metastatic disease or primary renal cell carcinoma. Mild hydronephrosis was also noted in he is status post ureteral stent per Dr. Villareal at [facility]. Squamous cell carcinoma Left supraclavicular lymph node biopsy on 12/09/2020 came back positive for metastatic squamous cell carcinoma likely from lung origin. Surgical History Surgical History History of ureter stent Right ureteral stent placed 12/[address] Villareal at [facility]. History of vasectomy Family History Family History Mother Family history of type 2 diabetes mellitus Family history of renal failure Father Family history of coronary artery disease Family history of type 2 diabetes mellitus Social History Social History Social History: Surrogate decision maker: Peggy Rosas, . Code status: DNR Smoking packs per day: 1 Smoking cigarettes per day: 20.0 Years smoked: 35 Smoking pack-years: 35.00 Smoking status: Former smoker Smoking end date: 08/06/19 Alcohol intake: never Substance use: never Substance use type: does not use Additional living arrangements comments: The patient lives in [place] with his . He has 3 children. Additional occupation/education comments: Not currently working. He worked in
--- NOTE | 2021-06-08 17:29 | PM.IMHP ---
H&P: HPI History of Present Illness Date/Time: 06/08/21 17:29 this is a 60-year-old male patient who has non-small cell metastatic lung cancer. The patient typically sees Dr. lozada. The patient had chemotherapy today. It was found have an O2 saturation of 86% on room air and a low blood pressure. The told me that the patient went to [facility] over the weekend on Tuesday and had IV fluids because his blood pressure was low. The patient has been complaining of generalized weakness and gradual increase in shortness of breath and coughing over the last few days. The patient did not receive a COVID vaccine as per request of his oncologist. It was noted that Dr. lozada mentioned hospice to the last week the patient has not been eating or drinking for weeks and he has gradually gotten weaker. The patient most likely will not be able to tolerate any further chemotherapy. CTA was read as a follow 1. Development of moderate amount of acute edema or pneumonia superimposed on chronic infiltrative left hilar mass and lung metastatic disease. 2. Small to moderate bilateral pleural effusions with loculations, mild increase in size. 3. Cardiomegaly. Dilated pulmonary arteries. 4. Mediastinal adenopathy. 5. No pulmonary emboli identified. Chest x-ray was read as 1. Airspace disease unchanged, malignancy and metastatic disease. Superimposed pneumonia or edema not excludable. 2. Small left pleural effusion with loculations. 3. Cardiomegaly, congestion. The patient was started on IV fluids and Levaquin and vancomycin. Dr. lozada has been consulted. The patient's blood pressure has been low today 78/49 and 88/60. Patient was given IV fluids. CRP is 4.5. I spoke with the in the patient and he is a DNR. The patient is admitted to inpatient services on date of service 06/08/2021 Chief Complaint: Shortness of breath Review of Systems Review of Systems: All systems reviewed & are unremarkable except as noted in HPI and below Constitutional: Constitutional: Reports as per HPI and Reports no additional constitutional complaints Eyes: Eyes: Reports as per HPI and Reports no additional eye complaints ENT: Reports system reviewed and no additional complaints, except as documented and Reports Normal hearing present Cardiovascular: Cardiovascular: Reports no additional cardiovascular complaints Respiratory: Respiratory: Reports no additional respiratory complaints and Reports no additional respiratory complaints Gastrointestinal: Gastrointestinal: Reports as per HPI and Reports no additional gastrointestinal complaints Musculoskeletal: Musculoskeletal: Reports no additional musculoskeletal complaints Integumentary/Breasts: Skin/Breast: Reports system reviewed and no additional complaints, except as docu and Reports as per HPI Neurologic: Reports system reviewed and no additional complaints, except as documented, Reports as per HPI and Reports Normal hearing present Psychiatric: Psychiatric: Reports no additional psychiatric complaints and Reports as per HPI Endocrine: Endocrine: Reports no additional endocrine complaints Hematologic/Lymphatic: Hematologic/Lymphatic: Reports no additional hematologic/lymphatic complaints Allergic/Immunologic: Allergic/Immunologic: Reports no additional allergic/immunologic complaints [facility] Past Medical History Medical History (Updated 06/08/21 @ 17:51 by Aleida Barreto NP) Gastroesophageal reflux disease Metastatic non-small cell lung cancer Diagnosed with poorly differentiated non-small cell lung cancer arising in the left upper lobe in July 2019, status post chemo radiation per Drs. Lozada and Ubaldo. Nephrolithiasis Peripheral neuropathy Secondary to chemotherapy. Restless leg syndrome Right kidney mass PET scan on 11/24/2020 showed a masslike region in the posterior interpolar region of the right kidney representing either metastatic disease or primary renal cell carcinoma. Mi
--- NOTE | 2021-06-08 18:00 | PC.NURSE ---
bp had consistently been running 90/60. report being called to 2nd floor. pt noted to have bp drop to 72/51. pts bed status changed to icu
[2021-06-08] MEDS: NOREPINEPHRINE 8 MG/D5W 250 ML 8 MG/250 ML BAG 9.38 MG IV CONT (19:20)
--- NOTE | 2021-06-08 21:27 | ADMGEN ---
This patient, Charli Rosas, was admitted to Intensive Care Unit-12 on 06/08/2021 at 2030. Patient/family oriented to hospital policies and general routines including ID bracelet, bed and alarms, visiting hours, pain management, procedures, bathroom and other care routines, personal items, smoking policy, room service/diet, and visiting hours. Information on how to activate the Rapid Response Team has been discussed. Patient/Family are encouraged to report perceived risks to care and to ask questions if they do not understand what they are told or what they should do.
[2021-06-08] MEDS: SODIUM CHLORIDE 0.9% IV 1,000 ML 75 ML IV CONT (21:40)
[2021-06-09] VITALS (18 sets, daily range): BP systolic 100–120; BP diastolic 57–76; PULSE 92–108; RESP 16–32; TEMP 36.4–36.9; O2SAT 87–100; BMI 22.3
[2021-06-09] MEDS: ALBUTEROL SULFATE NEB 2.5 MG/0.5 ML INH 5 MG INHALATION ×2 (02:58→08:00)
[2021-06-09 04:58] LABS: Basophils Percent Auto 0.1 % (0.2-1.2); Eosinophils Percent Auto 0.1 % (0-4.4); Hematocrit 33.3 % (42.0-52.0); Hemoglobin 10.3 g/dL (14.0-18.0); Immature Granulocyte Absolute 0.09 K/mm3 (0.00-0.031); Immature Granulocyte Percent A 1.1 % (0-0.5); Lymphocytes Absolute Auto 0.51 K/mm3 (0.9-3.2); Lymphocytes Percent Auto 6.1 % (18.3-44.2); Mean Corpuscular HGB Conc 30.9 g/dl (32-36); Mean Corpuscular Hemoglobin 31.5 pg (26-34); Mean Corpuscular Volume 101.8 fl (80-100); Mean Platelet Volume 9.1 fl (7.4-10.4); Monocytes Absolute Auto 1.2 K/mm3 (0.1-0.6); Monocytes Percent Auto 13.9 % (2.6-8.5); Neutrophils Absolute Auto 6.6 K/mm3 (1.3-6.7); Neutrophils Percent Auto 78.7 % (45.5-73.1); Nucleated Red Blood Cells Absolute Auto 0.1 K/mm3 (0.0-0.012); Nucleated Red Blood Cells Perc 0.6 % (0.0-0.2); Platelet Count Result 254 k/mm3 (150-375); Red Blood Count 3.27 M/mm3 (4.6-6.20); Red Cell Distribution Width 18.8 % (11.5-14.5); White Blood Count 8.3 K/mm3 (4.5-10.0)
[2021-06-09 05:21] LABS: Alanine Aminotransferase 11 U/L (4-50); Albumin Level 2.4 g/dL (3.5-5.1); Alkaline Phosphatase 106 U/L (38-126); Anion Gap 4 mmol/L (8-16); Aspartate Amino Transferase 28 U/L (17-59); Bilirubin,Total 0.3 mg/dL (0.2-1.3); Blood Urea Nitrogen 12 mg/dL (9-20); Carbon Dioxide 31 mmol/L (22-30); Chloride 103 mmol/L (98-107); Estimated CRCL calculation 108 ml/min; Estimated Glomerular Filt Rate > 60; Glucose 96 mg/dL (65-110); Lactate Dehydrogenase 301 U/L (313-618); Magnesium 1.7 mg/dL (1.6-2.3); Potassium 3.4 mmol/L (3.4-5.0); Sodium 138 mmol/L (137-145)
--- NOTE | 2021-06-09 07:36 | PM.IMPN ---
Progress Note: A&P Assessment and Plan (1) Shock: Code(s): R57.9 - Shock, unspecified Status: Acute Assessment and Plan: Shock could be related to sepsis/infection, hypovolemia secondary to decreased p.o. intake for weeks -patient received 3 L of IV fluids as bolus -Weaned from Levophed -on IV vancomycin and Levaquin (initiated on 06/08/2021) -maintain mean arterial pressures greater than 65 mmHg -continues/p will give albumin (2) Pneumonia: Qualifiers: Laterality: unspecified laterality Lung location: unspecified part of lung Pneumonia type: due to unspecified organism Qualified Code(s): J18.9 - Pneumonia, unspecified organism Code(s): J18.9 - Pneumonia, unspecified organism Status: Acute Assessment and Plan: Patient with possibly a pneumonia on CTA chest -started on vancomycin and levofloxacin -cultures have been obtained and pending -currently considering hospice. -COntinue standard care (3) Metastatic primary lung cancer: Qualifiers: Laterality: unspecified laterality Qualified Code(s): C34.90 - Malignant neoplasm of unspecified part of unspecified bronchus or lung Code(s): C34.90 - Malignant neoplasm of unspecified part of unspecified bronchus or lung Status: Acute Assessment and Plan: Follows with Dr. Lozada who has been consulted -patient received his chemotherapy on 06/08/2021 -Hospice consult (4) Weakness: Code(s): R53.1 - Weakness Status: Acute Assessment and Plan: Generalized weakness, likely related to metastatic lung cancer, chemotherapy, failure to thrive with decreased p.o. intake for weeks (5) Suspected 2019 novel coronavirus infection: Code(s): Z20.822 - Contact with and (suspected) exposure to COVID-19 Status: Acute Assessment and Plan: Leukopenia, elevated LDH, ferritin and CRP -patient is on vaccinated, presented with shortness of breath, generalized weakness, low O2 sats on room air, CTA and chest x-ray with bilateral infiltrates -SARS-CoV-2 PCR negative. (6) Subclinical hypothyroidism: Code(s): E03.8 - Other specified hypothyroidism Status: Acute Assessment and Plan: <del>Stop</del> levothyroxine (7) DVT prophylaxis: Code(s): Z29.9 - Encounter for prophylactic measures, unspecified Status: Acute Assessment and Plan: Ordered Lovenox SQ Additional Plan Discussed with patient updated with his condition and plan of care. Code status: Do not resuscitate Hospice consult. Subjective Date/time seen: Narrative: This is a 60-year-old gentleman with a medical history including but not limtied to non-small cell metastatic lung cancer. The patient typically sees Dr. Lozada. The patient had chemotherapy on 06/08/2021. He was hypotensive and hypoxic with an O2 saturation of 86% on room air. The patient went to [facility] over the weekend on Tuesday and had IV fluids because his blood pressure was low. The patient has been complaining of generalized weakness and worsening shortness of breath with coughover the last few days. The patient did not receive a COVID vaccine as per request of his oncologist. It was noted that Dr. Lozada mentioned hospice to the last week the patient has not been eating or drinking for weeks and he has gradually gotten weaker. The patient most likely will not be able to tolerate any further chemotherapy. CTA revealed development of moderate amount of acute edema or pneumonia superimposed on chronic infiltrative left hilar mass and lung metastatic disease. Chest x-ray revealed unchanged airspace disease , malignancy and metastatic disease. Superimposed pneumonia or edema not excludable. The patient was started on IV fluids and Levaquin and vancomycin. Dr. Lozada has been consulted. The patient's blood pressure on admission was low 78/49 and 88/60. Patient was given IV fluids. CRP is 4.5. Patient and he is
--- NOTE | 2021-06-09 08:57 | WPDCNINT ---
Assessment and Plan Assessment and plan (1) Shock: Code(s): R57.9 - Shock, unspecified Status: Acute Assessment and Plan: Shock could be related to sepsis/infection, hypovolemia secondary to decreased p.o. intake for weeks -patient received 3 L of IV fluids as bolus -off Levophed -on IV vancomycin and Levaquin (initiated on 06/08/2021) -maintain mean arterial pressures greater than 65 mmHg -continue maintenance IV fluid -will give albumin (2) Pneumonia: Qualifiers: Laterality: unspecified laterality Lung location: unspecified part of lung Pneumonia type: due to unspecified organism Qualified Code(s): J18.9 - Pneumonia, unspecified organism Code(s): J18.9 - Pneumonia, unspecified organism Status: Acute Assessment and Plan: Patient with possibly a pneumonia on CTA chest -started on vancomycin and levofloxacin -cultures have been obtained and pending (3) Metastatic primary lung cancer: Qualifiers: Laterality: unspecified laterality Qualified Code(s): C34.90 - Malignant neoplasm of unspecified part of unspecified bronchus or lung Code(s): C34.90 - Malignant neoplasm of unspecified part of unspecified bronchus or lung Status: Acute Assessment and Plan: Follows with Dr. Lozada who has been consulted -patient received his chemotherapy on 06/08/2021 (4) Weakness: Code(s): R53.1 - Weakness Status: Acute Assessment and Plan: Generalized weakness likely related to metastatic lung cancer, chemotherapy, failure to thrive with decreased p.o. intake for weeks (5) Suspected 2019 novel coronavirus infection: Code(s): Z20.822 - Contact with and (suspected) exposure to COVID-19 Status: Acute Assessment and Plan: Leukopenia, elevated LDH, ferritin and CRP -patient is on vaccinated, presented with shortness of breath, generalized weakness, low O2 sats on room air, CTA and chest x-ray with bilateral infiltrates -SARS-CoV-2 PCR will be ordered -will place patient on droplet, airborne, contact isolation/precautions (6) Subclinical hypothyroidism: Code(s): E03.8 - Other specified hypothyroidism Status: Acute Assessment and Plan: Will start levothyroxine (7) DVT prophylaxis: Code(s): Z29.9 - Encounter for prophylactic measures, unspecified Status: Acute Assessment and Plan: Ordered Lovenox SQ Additional Plan Discussed with patient updated with his condition and plan of care. Code status: Do not resuscitate Critical care time spent: 43 minutes This dictation may have been done utilizing a voice recognition system. Attempts have been made to correct errors. However, there may be uncorrected grammatical, spelling, and recognition errors present. Due to a high probability of clinically significant, life threatening deterioration, the patient required my highest level of preparedness to intervene emergently and I personally spent this critical care time directly and personally managing the patient. This critical care time included obtaining a history; examining the patient; pulse oximetry; ordering and review of studies; arranging urgent treatment with development of a management plan; evaluation of patient's response to treatment; frequent reassessment; and discussions with other providers. It was exclusive of separately billable procedures and treating other patients and teaching time. Please see Assessment and Plan section and the rest of the note for further information on patient assessment and treatment [employer] Consult Note Consult date: 06/09/21 Time Seen: 06:54 Reason for consult: Hypotension, failure to thrive, generalized weakness, decreased oral intake HPI: Charli Rosas is a 60 year old male with significant past medical history of metastatic non-small cell lung cancer diagnosed 07/2000 status post chemotherapy per Dr. Lozada, nephrolithiasis, peripheral neuropathy seconda
[2021-06-09] MEDS: ENOXAPARIN 40 MG/0.4 ML SYRINGE SUB-Q (09:37)
[2021-06-09] MEDS: DULoxetine HCL 30 MG CAPSULE.DR 60 MG PO (11:43)
[2021-06-09] MEDS: LEVOTHYROXINE SODIUM 75 MCG TABLET PO (11:43)
[2021-06-09] MEDS: SODIUM CHLORIDE 0.9% IV 1,000 ML 75 ML IV CONT (11:44)
[2021-06-09] MEDS: PANTOPRAZOLE SODIUM IV 40 MG VIAL IV PUSH (11:44)
[2021-06-09] MEDS: ALBUMIN HUMAN 25% 12.5 GM/50ML 50 ML IVPB ×2 (12:03→17:09)
--- NOTE | 2021-06-09 12:35 | PDONCCN ---
HPI - Date of Consult Date/Time: 06/09/21 12:35 Requesting Physician: Lauren Vu MD Primary Care Provider: Brenna Gillespie NP - Consult Narrative Reason for consult: Metastatic non-small cell lung cancer Narrative: Charli Rosas is a 60 year old male with diagnosis of metastatic non-small cell lung cancer currently on chemotherapy with Cyramza and Taxotere. He came into the office yesterday for chemotherapy but was feeling quite tired and weak. He was found to be quite hypotensive and oxygen saturation was dropping on room air. He was sent to the ER for admission. He has been eating poorly and continue to lose weight. He had a CT chest performed that showed no evidence of pulmonary embolism but development of moderate amount of acute anemia and pneumonia. There was mediastinal lymphadenopathy. He was started on vancomycin and Levaquin. He is already feeling much better. COVID test has been ordered. Review of Systems - Review of Systems All systems reviewed & are unremarkable except as noted in HPI and bel - Neurologic Reports system reviewed and no additional complaints, except as documented, Reports hearing normal [facility] Medical History: Medical History (Last Updated 06/08/21 @ 17:51 by Aleida Barreto NP) Gastroesophageal reflux disease Metastatic non-small cell lung cancer Diagnosed with poorly differentiated non-small cell lung cancer arising in the left upper lobe in July 2019, status post chemo radiation per Drs. Lozada and Ubaldo. Nephrolithiasis Peripheral neuropathy Secondary to chemotherapy. Restless leg syndrome Right kidney mass PET scan on 11/24/2020 showed a masslike region in the posterior interpolar region of the right kidney representing either metastatic disease or primary renal cell carcinoma. Mild hydronephrosis was also noted in he is status post ureteral stent per Dr. Villareal at [facility]. Squamous cell carcinoma Left supraclavicular lymph node biopsy on 12/09/2020 came back positive for metastatic squamous cell carcinoma likely from lung origin. Surgical History: Surgical History (Last Reviewed 06/08/21 @ 17:36 by Aleida Barreto NP) History of ureter stent Right ureteral stent placed 12/[address] Villareal at [facility]. History of vasectomy Family History: Family History (Last Reviewed 06/08/21 @ 21:00 by Sri A. Sparkle, RN) Mother Family history of type 2 diabetes mellitus Family history of renal failure Father Family history of coronary artery disease Family history of type 2 diabetes mellitus - Social History Social History: Social History (Last Reviewed 06/08/21 @ 17:39 by Aleida Barreto NP) Gender Identity: Gender identity (if verbalized by the patient): Male Sexual Orientation: Sexual Orientation (if Verbalized by the Patient): Straight or Heterosexual Alcohol Use: Alcohol intake: never Substance Use: Substance use: never Substance use type: does not use Others: Spiritual care concerns: No Smoking Status: Smoking status: Former smoker Smoking Pack-years: Smoking packs per day: 1 Smoking cigarettes per day: 20.0 Years smoked: 35 Smoking pack-years: 35.00 Meds Home Medications Medication Instructions Recorded Confirmed Type lansoprazole 15 mg PO DAILY 01/03/21 06/08/21 History ondansetron 8 mg PO Q8H PRN 02/16/21 06/08/21 History albuterol sulfate 90 mcg/actuation 1 puff INHALATION Q4H PRN #8.5 g 05/11/21 06/08/21 Rx aerosol inhaler levothyroxine [Synthroid] 75 mcg PO DAILY #20 tablet 05/29/21 06/08/21 Rx Adults Multivitamin 1 tablet PO DAILY 06/08/21 06/08/21 History dronabinol 2.5 mg PO BID 06/08/21 06/08/21 History duloxetine 60 mg PO DAILY 06/08/21 06/08/21 History mirtazapine 7.5 mg PO HS 06/08/21 06/08/21 History Allergies Allergy/AdvReac Type Severity Reaction Status Date / Time amoxicillin [From Augmentin] Allergy Rash Ve
[2021-06-09 12:48] LABS: EDCOVIDSCREEN Negative (Negative)
[2021-06-09 13:56] LABS: Free T4 Free Thyroxine Reflex 1.84 ng/dL (0.78-2.19)
[2021-06-09] MEDS: CENTRAL LINE FLUSH 10 ML IV PUSH ×2 (14:09→21:16)
[2021-06-09 15:02] LABS: Total Triiodothyronine (T3) 0.65 NG/ML (0.97-1.69)
[2021-06-09] MEDS: ACETAMINOPHEN 325 MG TABLET 650 MG PO (20:00)
[2021-06-09] MEDS: ALBUTEROL SULFATE (*SP) AEROSOL 1 PUFF 2 PUFF INHALATION (21:05)
[2021-06-09] MEDS: MIRTAZAPINE 7.5 MG TABLET PO (21:16)
[2021-06-10] VITALS: BP 94/57; PULSE 94; RESP 24; TEMP 36.5; O2SAT 96
[2021-06-10] MEDS: ALBUMIN HUMAN 25% 12.5 GM/50ML 50 ML IVPB ×2 (00:13→06:11)
[2021-06-10 01:27] LABS: SARS-CoV-2 RNA PCR Negative
[2021-06-10] MEDS: ALBUTEROL SULFATE (*SP) AEROSOL 1 PUFF 2 PUFF INHALATION ×3 (04:01→13:34)
[2021-06-10] MEDS: CENTRAL LINE FLUSH 10 ML IV PUSH (06:11)
[2021-06-10] MEDS: LEVOTHYROXINE SODIUM 75 MCG TABLET PO (06:12)
[2021-06-10] MEDS: SODIUM CHLORIDE 0.9% IV 1,000 ML 75 ML IV CONT (06:20)
[2021-06-10 08:00] VITALS: PULSE 90; RESP 18; TEMP 36.8; O2SAT 92; O2SAT 94
--- NOTE | 2021-06-10 09:11 | PM.IMPN ---
Progress Note: A&P Assessment and Plan (1) Shock: Code(s): R57.9 - Shock, unspecified Status: Acute Assessment and Plan: Shock could be related to sepsis/infection, hypovolemia secondary to decreased p.o. intake for weeks -patient received 3 L of IV fluids as bolus -Weaned from Levophed -on IV vancomycin and Levaquin (initiated on 06/08/2021) -maintain mean arterial pressures greater than 65 mmHg -continues/p will give albumin (2) Pneumonia: Qualifiers: Laterality: unspecified laterality Lung location: unspecified part of lung Pneumonia type: due to unspecified organism Qualified Code(s): J18.9 - Pneumonia, unspecified organism Code(s): J18.9 - Pneumonia, unspecified organism Status: Acute Assessment and Plan: Patient with possibly a pneumonia on CTA chest -started on vancomycin and levofloxacin -cultures have been obtained and pending -currently considering hospice. -COntinue standard care (3) Metastatic primary lung cancer: Qualifiers: Laterality: unspecified laterality Qualified Code(s): C34.90 - Malignant neoplasm of unspecified part of unspecified bronchus or lung Code(s): C34.90 - Malignant neoplasm of unspecified part of unspecified bronchus or lung Status: Acute Assessment and Plan: Follows with Dr. Lozada who has been consulted -patient received his chemotherapy on 06/08/2021 -Hospice consult (4) Weakness: Code(s): R53.1 - Weakness Status: Acute Assessment and Plan: Generalized weakness, likely related to metastatic lung cancer, chemotherapy, failure to thrive with decreased p.o. intake for weeks (5) Suspected 2019 novel coronavirus infection: Code(s): Z20.822 - Contact with and (suspected) exposure to COVID-19 Status: Acute Assessment and Plan: Leukopenia, elevated LDH, ferritin and CRP -patient is on vaccinated, presented with shortness of breath, generalized weakness, low O2 sats on room air, CTA and chest x-ray with bilateral infiltrates -SARS-CoV-2 PCR negative. (6) Subclinical hypothyroidism: Code(s): E03.8 - Other specified hypothyroidism Status: Acute Assessment and Plan: <del>Stop</del> levothyroxine (7) DVT prophylaxis: Code(s): Z29.9 - Encounter for prophylactic measures, unspecified Status: Acute Assessment and Plan: Ordered Lovenox SQ (8) Shortness of breath: Code(s): R06.02 - Shortness of breath Status: Acute Assessment and Plan: continue oxygen supplementation. Home oxygen set up. Will go home on hospice today. Additional Plan Discussed with patient updated with his condition and plan of care. Code status: Do not resuscitate Hospice consult. Subjective Date/time seen: 06/10/21 09:11 Exam Const: General: cooperative, comfortable, no acute distress, alert, awake, ill appearing and tired appearing Nutritional Appearance: average body habitus, thin and underweight Orientation/consciousness: oriented to person, oriented to place, oriented to time and patient oriented x3 Limitations: no limitations HENMT: Head: normal to inspection, No palpable skull fracture present and normocephalic Ears: hearing grossly normal bilaterally and external ears normal General nose exam: Normal external nose present Mouth: Yes moist mucous membranes Eyes: General: appearance normal, both eyes and all related structures Alignment and Position: alignment normal Periorbital: periorbital findings normal Eyelids: eyelids normal Conjunctivae: conjunctivae normal Sclera: sclerae normal Cornea: corneas normal Pupils: Equal, round and reactive pupils present EOM: EOMs intact bilaterally Neck: Neck: normal visual inspection, supple and no JVD Thyroid: thyroid normal Lymphatic: lymphadenopathy not noted Chest: Chest palpation & inspection: normal inspection of the chest Resp: Effort & Inspection: normal respiratory
[2021-06-10] MEDS: DULoxetine HCL 30 MG CAPSULE.DR 60 MG PO (09:12)
[2021-06-10 09:51] LABS: Vancomycin Trough 14.3 ug/mL (10.0-20.0)
--- NOTE | 2021-06-10 10:28 | PCDIET ---
ICU Rounding Note: Patient eating 25-50% of meals. Reports unable to eat much this morning due to shortness of breath. Has tried Ensure in past and reports unable to drink it. Recommend trying Ensure Clear (240kcal, 8g protein) TID. Would continue regular diet, as tolerated. Dietary to honor food preferences, as able. Plan for discharge with hospice noted. Last recorded weight is 70.3kg which is stable with last review. Bowel Motility: No documented BM as of yet. Labs Reviewed: No new labs available. Meds Noted: Albuterol, Synthroid, Remeron, Pulmicort, Levaquin, Vancomycin, NS at 75mL/hr Additional Notes: Right buttock with stage II area. Following daily in ICU rounds. Assessing/reassessing every 3 days.
[2021-06-10 11:11] VITALS: BP 124/76; PULSE 98; O2SAT 94
--- NOTE | 2021-06-10 12:20 | PM.DS ---
DS: Admitting Diagnosis Discharge Date 06/10/2021 Admitting Diagnosis Pneumonia DS: Discharge Diagnosis Discharge Diagnosis (1) Shock: Code(s): R57.9 - Shock, unspecified Status: Acute Assessment and Plan: Patient was treated for Shock could be related to sepsis/infection, hypovolemia secondary to decreased p.o. intake for weeks -patient received 3 L of IV fluids as bolus -Weaned from Levophed -on IV vancomycin and Levaquin (initiated on 06/08/2021) -maintain mean arterial pressures greater than 65 mmHg -s/p albumin (2) Pneumonia: Qualifiers: Laterality: unspecified laterality Lung location: unspecified part of lung Pneumonia type: due to unspecified organism Qualified Code(s): J18.9 - Pneumonia, unspecified organism Code(s): J18.9 - Pneumonia, unspecified organism Status: Acute Assessment and Plan: Patient with possibly a pneumonia on CTA chest -he was treated with vancomycin and levofloxacin -cultures have been obtained and pending -currently considering hospice. -Continue standard care. -Standard care stopped after patient and his opted for hospice. (3) Metastatic primary lung cancer: Qualifiers: Laterality: unspecified laterality Qualified Code(s): C34.90 - Malignant neoplasm of unspecified part of unspecified bronchus or lung Code(s): C34.90 - Malignant neoplasm of unspecified part of unspecified bronchus or lung Status: Acute Assessment and Plan: Follows with Dr. Lozada who has been consulted -patient received his chemotherapy on 06/08/2021 -Hospice consult -Patient wishes to move forward with hospice care. (4) Weakness: Code(s): R53.1 - Weakness Status: Acute Assessment and Plan: Generalized weakness, likely related to metastatic lung cancer, chemotherapy, failure to thrive with decreased p.o. intake for weeks (5) Suspected 2019 novel coronavirus infection: Code(s): Z20.822 - Contact with and (suspected) exposure to COVID-19 Status: Acute Assessment and Plan: Leukopenia, elevated LDH, ferritin and CRP -patient is on vaccinated, presented with shortness of breath, generalized weakness, low O2 sats on room air, CTA and chest x-ray with bilateral infiltrates -SARS-CoV-2 PCR negative. (6) Subclinical hypothyroidism: Code(s): E03.8 - Other specified hypothyroidism Status: Acute Assessment and Plan: He was treated with his usual dose of levothyroxine (7) DVT prophylaxis: Code(s): Z29.9 - Encounter for prophylactic measures, unspecified Status: Acute Assessment and Plan: Ordered Lovenox SQ (8) Shortness of breath: Code(s): R06.02 - Shortness of breath Status: Acute Assessment and Plan: continue oxygen supplementation. Home oxygen set up. Will go home on hospice today. DS: Summary Hospital Course Reason for hospitalization: shortness of breath Hospital Course: This is a 60-year-old gentleman who carries a diagnosis of non-small cell metastatic lung cancer. The patient typically sees Dr. Lozada. The patient had his last chemotherapy on 06/08/2021. He was found have an O2 saturation of 86% on room air and a low blood pressure. The reports that the patient went to [facility] over the weekend on Tuesday and had IV fluids because his blood pressure was low. The patient has been complaining of generalized weakness and gradual increase in shortness of breath and coughing over the last few days. The patient did not receive a COVID vaccine as per request of his oncologist. It was noted that Dr. lozada mentioned hospice to the last week the patient has not been eating or drinking for weeks and he has gradually gotten weaker. The patient most likely will not be able to tolerate any further chemotherapy. CTA was read as a follow 1. Development of moderate amount of acute edema or pneumonia superimposed on chronic infiltrative
[2021-06-10] MEDS: HEPARIN SODIUM LOCK FLUSH 500 UNITS/5 ML VIAL IV PUSH (13:27)
== END 2021-06-10 14:07 | disposition hospice, home (50) | DRG 871 ==
LOC: ANHED 14:38 → ANHICU 18:32
PROVIDERS: Emergency Medicine; Internal Medicine; Nurse Practitioner; Admitting Provider Internal Medicine; Emergency Provider Emergency Medicine; PCP Nurse Practitioner Family; Visit Provider Internal Medicine
DX: A41.9 Sepsis, unspecified organism (principal); J18.9 Pneumonia, unspecified organism; R65.21 Severe sepsis with septic shock; C34.90 Malignant neoplasm of unspecified part of unspecified bronchus or lung; J90 Pleural effusion, not elsewhere classified; C79.01 Secondary malignant neoplasm of right kidney and renal pelvis; E03.9 Hypothyroidism, unspecified; Z20.828 Contact with and (suspected) exposure to other viral communicable diseases; R59.0 Localized enlarged lymph nodes; R62.7 Adult failure to thrive; G25.81 Restless legs syndrome; G62.9 Polyneuropathy, unspecified; K21.9 Gastro-esophageal reflux disease without esophagitis; Z66 Do not resuscitate; Z87.891 Personal history of nicotine dependence; I51.7 Cardiomegaly; R63.6 Underweight; Z68.22 Body mass index [BMI] 22.0-22.9, adult
CPT/HCPCS: 36415; 71046; 71275; 80048; 80053; 80202; 81001; 82728; 83605; 83615; 83735; 84439; 84443; 84480; 85025; 85610; 85730; 86140; 87040; 87426; 93005; 94640; 96361; 96365; 99203; 99285; A9270; C9113; C9803; G0463; J1642; J1650; J1956; J3370; J7030; P9047; Q9967; U0003; U0005